=== PATIENT | female | born 1940 | race Caucasian/White ===

== ENCOUNTER → 2020-04-18 | Outpatient (CLI) | payer MEDICARE, OTHER, SELFPAY ==
[2016-02-15 09:58] VITALS: BMI 26.7
[2020-04-18 09:18] LABS: Hematocrit 40.9 % (37-47); Hemoglobin 12.9 g/dL (12.0-15.0); Mean Corp Hgb Conc 31.5 g/dL (32-36); Mean Corpuscular Hgb 28.5 pg (27.0-32.0); Mean Corpuscular Volume 90.5 fL (81-99); Mean Platelet Vol. 11.2 fl (6.2-12.0); Platelet Count 303 K/mm3 (150-450); RBC Distribution Width CV 14.9 % (11.6-14.6); RBC Distribution Width SD 49.5 fl (35.1-43.9); Red Blood Count 4.52 M/mm3 (4.2-5.4); White Blood Count 8.8 K/mm3 (4.4-11.0)
[2020-04-18 09:54] LABS: ALB/GLOB Ratio 0.8 RATIO (0.9-2.4); AST(SGOT) 21 U/L (15-37); Alanine Aminotransfer ALT/SGPT 21 U/L (13-56); Albumin, Serum 3.6 g/dL (3.2-5.0); Alkaline Phosphatase 84 U/L (45-117); Anion Gap 5 (5-15); BUN 25 mg/dL (7-18); BUN/Creat Ratio 18.2 RATIO (10-20); Calcium,Total 9.3 mg/dL (8.5-10.1); Chloride 103 mmol/L (98-107); Cholesterol 166 mg/dL (200); Creatinine, Serum 1.37 mg/dL (0.55-1.02); EST Glomerular Filtration Rate 39 mL/min (>60); Est Glom Filt Rate - Afr Amer 48 mL/min (>60); Globulin 4.3 g/dL (2.2-4.2); Glucose 82 mg/dL (74-106); High Density Lipoprotein 52 mg/dL; Potassium 3.8 mmol/L (3.5-5.1); Protein, Total 7.9 g/dL (6.4-8.2); Sodium Level 139 mmol/L (136-145); T4 Free Direct 1.16 ng/dL (0.76-1.46); Thyroid Stim Hormone (TSH) 2.68 uIU/mL (0.358-3.74); Triglycerides 82 mg/dL; Very Low Density Lipoprotein 16 mg/dL (5-40)
[2020-04-18 09:56] LABS: Vitamin D,25 Hydroxy 103.9 ng/mL
== END | disposition home or self-care (01) ==
LOC: LAB 08:28
PROVIDERS: PCP Nurse Practitioner Family; Referring Provider Nurse Practitioner Family; Visit Provider Nurse Practitioner Family
DX: I10 Essential (primary) hypertension (principal); E55.9 Vitamin D deficiency, unspecified; E78.5 Hyperlipidemia, unspecified; E03.9 Hypothyroidism, unspecified
CPT/HCPCS: 36415; 80053; 80061; 82306; 84439; 84443; 85027

== ENCOUNTER → 2020-10-14 09:26 | Outpatient (CLI) | payer MEDICARE, OTHER, SELFPAY ==
[2016-02-15 09:58] VITALS: BMI 26.7
[2020-10-14 11:07] LABS: Hematocrit 37.8 % (37-47); Hemoglobin 11.9 g/dL (12.0-15.0); Mean Corp Hgb Conc 31.5 g/dL (32-36); Mean Corpuscular Hgb 27.2 pg (27.0-32.0); Mean Corpuscular Volume 86.5 fL (81-99); Mean Platelet Vol. 12.1 fl (6.2-12.0); Platelet Count 364 K/mm3 (150-450); RBC Distribution Width CV 14.6 % (11.6-14.6); Red Blood Count 4.37 M/mm3 (4.2-5.4); White Blood Count 9.3 K/mm3 (4.4-11.0)
[2020-10-14 11:33] LABS: Vitamin D,25 Hydroxy 67.1 ng/mL
[2020-10-14 11:47] LABS: ALB/GLOB Ratio 0.9 RATIO (0.9-2.4); AST(SGOT) 17 U/L (15-37); Alanine Aminotransfer ALT/SGPT 14 U/L (13-56); Albumin, Serum 3.6 g/dL (3.2-5.0); Alkaline Phosphatase 89 U/L (45-117); Anion Gap 8 (5-15); BUN 19 mg/dL (7-18); BUN/Creat Ratio 12.9 RATIO (10-20); Calcium,Total 9.3 mg/dL (8.5-10.1); Chloride 102 mmol/L (98-107); Cholesterol 174 mg/dL (200); Creatinine, Serum 1.47 mg/dL (0.55-1.02); EST Glomerular Filtration Rate 36 mL/min (>60); Est Glom Filt Rate - Afr Amer 44 mL/min (>60); Globulin 4.1 g/dL (2.2-4.2); Glucose 93 mg/dL (74-106); High Density Lipoprotein 44 mg/dL; Potassium 3.8 mmol/L (3.5-5.1); Protein, Total 7.7 g/dL (6.4-8.2); Sodium Level 140 mmol/L (136-145); T4 Free Direct 1.24 ng/dL (0.76-1.46); Thyroid Stim Hormone (TSH) 3.44 uIU/mL (0.358-3.74); Triglycerides 134 mg/dL; Very Low Density Lipoprotein 27 mg/dL (5-40)
== END ==
PROVIDERS: PCP Nurse Practitioner Family; Referring Provider Nurse Practitioner Family; Visit Provider Nurse Practitioner Family
DX: E78.5 Hyperlipidemia, unspecified (principal); E03.9 Hypothyroidism, unspecified; E55.9 Vitamin D deficiency, unspecified; I12.9 Hypertensive chronic kidney disease with stage 1 through stage 4 chronic kidney disease, or unspecified chronic kidney disease; N18.30 Chronic kidney disease, stage 3 unspecified
CPT/HCPCS: 36415; 80053; 80061; 82306; 84439; 84443; 85027

== ENCOUNTER 2020-11-05 09:25 | Inpatient (IN) | payer MEDICARE, OTHER, SELFPAY ==
[2020-11-05] VITALS (19 sets, daily range): BP systolic 90–179; BP diastolic 42–107; PULSE 66–158; RESP 14–29; TEMP 36.2–37.2; O2SAT 93–100; BMI 24.5; BMI 25.9
--- NOTE | 2020-11-05 09:46 | EKG12_ITS ---
Test Reason : DIZZINESS Blood Pressure : / mmHG Vent. Rate : 167 BPM Atrial Rate : 174 BPM P-R Int : 000 ms QRS Dur : 090 ms QT Int : 248 ms P-R-T Axes : 000 -04 154 degrees QTc Int : 413 ms Atrial fibrillation with rapid ventricular response Moderate voltage criteria for LVH, may be normal variant Marked ST abnormality, possible lateral subendocardial injury Abnormal ECG Confirmed by FIDELIA MONTES, TRE ([id number]), newspaper editor ELENA ONEIL ([id number]) on 11/07/2020 9:25:01 AM Referred By: BERNARDA Confirmed By:MARCOS MISTRY MD
--- NOTE | 2020-11-05 09:46 | RAD_ITS ---
STUDY: X-RAY CHEST REASON FOR EXAM: Female, 79 years old. Chest pain . Dizziness. TECHNIQUE: Single AP portable view of the chest. COMPARISON: Comparison is made with prior study dated 12/18/2013. FINDINGS: EKG electrodes are seen. Hyperinflation. The lungs are clear. There is no demonstrated pleural abnormality. Normal size heart. Normal mediastinum and jeanie. Normal visualized pulmonary arteries. There is atherosclerotic calcification of the aortic arch with tortuosity. Normal visualized thoracic spine. Normal visualized ribs, clavicles, and shoulders. Moderate sized hiatal hernia. RAD/Chest 1 View (Portable) IMPRESSION: Moderate sized hiatal hernia. Electronically Signed: Dinh Bush MD at 10:18 EDT , Service support ,
--- NOTE | 2020-11-05 09:48 | ED.VISSUMM ---
- ER Visit Summary Date of Service: 11/05/20 Chief Complaint: Lightheaded History of Present Illness: The patient is a 79 F who sees Fabricio Lewis. She reports she she is lightheadedness began yesterday. She denies any chest pain or palpitations. She states that this is worsened when she stands. She has not passed out. Patient denies any vertigo. No change in her vision. No numbness or weakness. She does state that she has been nauseated and vomited twice. No blood in her emesis. She denies any abdominal pain. Her last bowel movement was yesterday. She denies dysuria or frequency. Physical Examination: Vitals: 97.2, 104/67, 167, 14, 99% on room air which is not hypoxic. General: Well-nourished and well-developed. Head: Normocephalic atraumatic. Neck: Supple, no lymphadenopathy. No JVD. Nontender. Cardiovascular: Tachycardic regular rhythm. No murmurs. Respiratory: No respiratory distress. Clear to auscultation bilaterally. Abdominal: Soft, nontender, nondistended, normal bowel sounds. No guarding, rebound, or peritoneal signs. Back: Nontender. Extremities: Nontender, no edema. Skin: Normal color, no rash. Neurologic: Alert and oriented ?3. Cranial nerves II through XII are intact. Normal strength and sensation. Psych: Normal affect. Test Results: EKG shows A. fib at 167. She has T wave inversions and ST depression in leads I, aVL, V4 to V6. This is a change from 2013. CBC shows segmented neutrophils 79 lymphocytes of 9. Chem-7 shows potassium of 3.3, glucose 113, creatinine 1.53. Troponin 0 0.099. Magnesium is 2.1. TSH is 3.42. Clinical Impression(s) from Imaging Studies Chest X-Ray 11/05/20 09:46 IMPRESSION: Moderate sized hiatal hernia. Electronically Signed: Dinh Bush MD at 10:18 EDT , Service support , Emergency Department Course and Treatment: Patient had an IV placed. She is given a 500 cc bolus of normal saline. She was given Cardizem and Zofran IV. She was given aspirin p.o. Repeat heart rate ranges between 100-140. She is given 25 mg of Cardizem IV. Repeat heart rate is ranging between 90 and 120. Patient is resting comfortably. She was started on a Cardizem drip at 5 mg/h. Treatment Plan: Patient was discussed with Dr. Estrada. She will be discussed the hospitalist and admitted for further evaluation and treatment. Disposition: Admitted in improved condition. Impression: 1. Atrial fibrillation with RVR. 2. Renal insufficiency. 3. Indeterminate troponin. 4. Critical care time 33 minutes. This note was generated with [employer] dictation software. It may contain incorrect words, spelling, and punctuation that were not noted in review of the chart prior to signing ED Disposition - Plan for ED Patient: Referrals: Jf Lewis REVIVAL CLERK, REVIVAL CLERK-C [Primary Care Provider] -
[2020-11-05] MEDS: Ondansetron 4 MG/2 ML Vial IV ×2 (09:59→19:34)
[2020-11-05] MEDS: Aspirin 81 MG TAB.CHEW 324 MG PO (10:00)
[2020-11-05] MEDS: dilTIAZem 25 MG/5 ML Vial 20 MG IV BOLUS (10:02)
[2020-11-05 10:21] LABS: Absolute Lymphocyte Count 0.95 X10^3/uL (0.83-4.51); Absolute Neutrophil Count 8.6 X10^3/uL (2.0-7.7); Basophil# 0.06 X10^3/uL; Basophil% 0.6 % (0-1); Eosinophils% 1.8 % (0-5); Hematocrit 38.8 % (37-47); Hemoglobin 12.2 g/dL (12.0-15.0); Lymphocyte # 0.95 X10^3/ul (4.0); Lymphocyte % 8.7 % (19-41); Mean Corp Hgb Conc 31.4 g/dL (32-36); Mean Corpuscular Hgb 26.6 pg (27.0-32.0); Mean Corpuscular Volume 84.7 fL (81-99); Mean Platelet Vol. 12.5 fl (6.2-12.0); Monocyte# 1.08 X10^3/uL; Monocyte% 9.9 % (0-10); NRBC Flagged by Analyzer 0 % (0-5); Neutrophil # 8.55 X10^3/uL (2.7-7.7); Neutrophil % 78.6 % (47-70); Platelet Count 395 K/mm3 (150-450); RBC Distribution Width SD 46.1 fl (35.1-43.9); Red Blood Count 4.58 M/mm3 (4.2-5.4); White Blood Count 10.9 K/mm3 (4.4-11.0)
[2020-11-05] MEDS: dilTIAZem 25 MG/5 ML Vial IV BOLUS (10:23)
[2020-11-05 10:32] LABS: Anion Gap 8 (5-15); BUN 15 mg/dL (7-18); BUN/Creat Ratio 9.8 RATIO (10-20); Calcium,Total 9.4 mg/dL (8.5-10.1); Chloride 102 mmol/L (98-107); Creatinine, Serum 1.53 mg/dL (0.55-1.02); EST Glomerular Filtration Rate 35 mL/min (>60); Est Glom Filt Rate - Afr Amer 42 mL/min (>60); Estimated Creatinine Clearance 23.85 ml/min; Glucose 113 mg/dL (74-106); Magnesium 2.1 mg/dL (1.6-2.6); Potassium 3.3 mmol/L (3.5-5.1); Sodium Level 139 mmol/L (136-145); Thyroid Stim Hormone (TSH) 3.42 uIU/mL (0.358-3.74)
--- NOTE | 2020-11-05 11:15 | NURSING ---
MAREK CHRISTENSEN AFIB WITH RVR
[2020-11-05] MEDS: 0.9% Normal Saline 1,000 ML 150 ML IV (11:24)
--- NOTE | 2020-11-05 12:12 | ECHOD_ITS ---
Reason For Study: Afib/Flutter Procedure This was a 2D Doppler, Color Flow transthoracic echocardiogram. Exam performed portable in patient room. Left Ventricle Normal LV size. Moderate concentric left ventricular hypertrophy. Left ventricular systolic function is hyperdynamic. The estimated ejection fraction is 75 %. No regional wall motion abnormalities noted. Right Ventricle Normal RV size. Normal systolic function. Atria Normal left atrium. Normal right atrium. Mitral Valve Bileaflet diffuse mitral valve thickening. Moderate (2+) eccentric mitral valve insufficiency. Tricuspid Valve Normal tricuspid valve. Moderate (2+) tricuspid valve insufficiency. Pulmonary artery systolic pressure is 58 mmHg. Moderate pulmonary hypertension. Aortic Valve Trisinus/trileaflet aortic valve. Mild focal aortic valve calcification. Pulmonic Valve Normal pulmonic valve. Great Vessels Normal aortic root. The pulmonary artery is normal size. Inferior vena cava collapse with sniff. Pericardium/Pleural No pericardial effusion. MMode/2D Measurements & Calculations LVIDd: 3.8 cm IVSd: 1.3 cm Ao root diam: 2.9 cm LVIDs: 2.3 cm LVPWd: 1.6 cm LA dimension: 4.5 cm FS: 40.5 % LAV(MOD-bp): 68.8 ml LA A4 area: 22.4 cm2 RA A4 area: 15.1 cm2 LAV(MOD-bp) Indexed: 41.7 ml/m2 LAV(MOD-sp2): 60.2 ml LAV(MOD-sp4): 73.5 ml Time Measurements MV dec time: 0.18 sec Doppler Measurements & Calculations MV E max yaniv: 127.2 cm/sec Lat Peak E' Yaniv: 5.0 cm/sec Med Peak E' Yaniv: 6.0 cm/sec MV A max yaniv: 56.9 cm/sec E/E' lat: 25.6 E/E' med: 21.2 MV E/A: 2.2 MV V2 max: 143.1 cm/sec MV P1/2t max yaniv: 144.6 cm/sec Ao V2 max: 138.0 cm/sec MV max P.2 mmHg MV P1/2t: 89.5 msec Ao max P.6 mmHg MV V2 mean: 69.4 cm/sec MV dec slope: 473.1 cm/sec2 MV mean P.4 mmHg MVA(P1/2t): 2.5 cm2 MV V2 VTI: 33.5 cm LV V1 max: 84.6 cm/sec MR max yaniv: 592.1 cm/sec PA V2 max: 69.5 cm/sec LV V1 max P.9 mmHg MR max P.2 mmHg MR mean yaniv: 466.5 cm/sec MR mean P.2 mmHg MR VTI: 184.7 cm TR max yaniv: 366.6 cm/sec TR max P.8 mmHg Interpretation Summary Normal LV size. Moderate concentric left ventricular hypertrophy. Left ventricular systolic function is hyperdynamic. The estimated ejection fraction is 75 %. Moderate (2+) eccentric mitral valve insufficiency. Pulmonary artery systolic pressure is 58 mmHg. Moderate pulmonary hypertension. Ordering Physician: True Murphy Performed By: Alon Martinez RCS
--- NOTE | 2020-11-05 12:37 | EKG12_ITS ---
Test Reason : AM EKG Blood Pressure : / mmHG Vent. Rate : 087 BPM Atrial Rate : 087 BPM P-R Int : 144 ms QRS Dur : 092 ms QT Int : 364 ms P-R-T Axes : 033 011 116 degrees QTc Int : 438 ms Normal sinus rhythm T wave abnormality, consider lateral ischemia Abnormal ECG When compared with ECG of 05-NOV-2020 12:46, MANUAL COMPARISON REQUIRED, DATA IS UNCONFIRMED Confirmed by AMITA MONTES, TATYANA ([id number]), medical editor ELENA ONEIL ([id number]) on 11/10/2020 1:53:38 PM Referred By: FERMIN Confirmed By:TATYANA LEVI MD
[2020-11-05] MEDS: Enoxaparin 60 MG/0.6 ML Syringe SC (16:39)
[2020-11-05] MEDS: Metoprolol Tartrate 50 MG Tablet PO (18:35)
[2020-11-05] MEDS: 0.9% Normal Saline 1,000 ML 75 ML IV (18:39)
--- NOTE | 2020-11-05 18:48 | CON.PCM_ITS ---
Reason for Consult Date of Consultation: 11/05/20 Reason for Consultation: Abnormal cardiac enzymes and atrial fibrillation History of Present Illness: The patient is a 79 year old F with no previous cardiac history who presented to the emergency room after being sent here by her primary care physician. She had complained of some lightheadedness as well as mild shortness of breath. She also noted that she was having some palpitations. She says that is the first time that she has ever had this episode. She denies any chest pain no paroxysmal nocturnal dyspnea or pedal edema she has been compliant with her medications. In the emergency room she was noted to be in atrial fibrillation with a rapid ventricular response rate with a heart rate of approximately [address] changes noted in the lateral leads. She was admitted to the telemetry care unit started on intravenous diltiazem and subsequently converted to sinus rhythm. Serial cardiac troponin enzymes were noted to be abnormal and cardiology was called to see her. At this particular time she has converted to sinus rhythm she is doing well with no complaints. [] Past Medical History Allergies/Adverse Reactions: Allergies ezetimibe [From Zetia] Allergy (Verified 11/05/20 09:29) Rash Home Medications: Ambulatory Orders Medication Instructions Recorded Aspirin [Aspirin, Baby] 81 mg PO DAILY@0800 11/09/13 Atorvastatin Calcium [Lipitor] 40 mg PO QHS 11/09/13 Calcium (Elemental) [Caltrate-600] 1,500 mg PO DAILY@0800 11/09/13 Levothyroxine Sodium [Levoxyl] 75 mcg PO DAILY 11/09/13 Venlafaxine XR [Effexor Xr] 37.5 mg PO DAILY 11/09/13 Carvedilol Phosphate CR [Coreg Cr 20 mg PO DAILY 03/14/14 (Beta Olvin)] Ergocalciferol [Vitamin D] 1 tablet PO QMONTH 11/05/20 Meloxicam 15 mg PO DAILY 11/05/20 Ramipril [Altace] 5 mg PO DAILY 11/05/20 Smoking Status: Never smoker Alcohol: None Drugs: None Review of Systems - Review of Systems General: Denies: Fever, Night Sweats, Fatigue HEENT: Denies: Vision Change Cardiovascular: Reports: Palpitations, Lightheadedness, Dizziness. Denies: Chest Discomfort, Shortness of Breath, Orthopnea, PND, Peripheral Edema, Near Syncope, Syncope Respiratory: Denies: Cough, Sputum Production, Hemoptysis Gastrointestinal: Denies: Hematemesis, Hematochezia, Melena Genitourinary: Denies: Dysuria, Hematuria Skin: Denies: Rash Neurological: Reports: Dizziness Psychiatric: Denies: Anxiety Endocrine: Denies: Heat Intolerance Hematologic/ Lymphatic: Denies: Anemia Subjectve: Pleasant lady in no distress at this time Objective: Vital Signs Temp Pulse Resp BP Pulse Ox 97.4 F L 76 18 157/64 H 96 11/05/20 12:30 11/05/20 18:35 11/05/20 18:00 11/05/20 18:00 11/05/20 18:00 Oxygen Flow Rate (L/min) 2 Oxygen Delivery Method Room Air Weight: 142 lb 3.17 oz Body Mass Index (BMI) 25.9 Intake and Output for Last 24 Hours 11/03/20 11/04/20 11/05/20 23:59 23:59 23:59 Intake Total 1711.41 / 1711.41 Balance 1711.41 / 1711.41 General: Awake, Alert, Oriented x 3 HEENT: PERRL, EOMI, Sclera Non Icteric Neck: Supple, Good ROM, No Lymph Node Enlargement Lungs: Clear to auscultation Cardiovascular: Regular Rhythm, Normal S1, Normal S2, No Murmurs, No Rubs, No Gallops Vascular: No Carotid Bruits, Normal Femoral Pulses, Normal Radial Pulses, Normal Dorsalis Pedal Pulse, Normal Posterior Tibial Pulses Abdomen: Bowel Sounds Present, Soft, Non Tender, No HSM, No Organomegaly Extremities: No Cyanosis, No Clubbing, No edema Musculoskeletal: No Erythema Skin: No Rashes Lymphatic: No Lymph Node Enlargement Neurological: No Focal Motor or Sensory Deficit 11/05/20 09:45: WBC 10.9, RBC 4.58, Hgb 12.2, Hct 38.8, MCV 84.7, MCH 26.6 L, MCHC 31.4 L, Plt Count 395, MPV 12.5 H, Immature Gran % (Auto) 0.400, Neut % (Auto) 78.6 H, Lymph % (Auto) 8.7 L, [place] % (Auto) 9.9, Eos % (Auto) 1.8, Baso % (Auto) 0.6, Absolute Neuts (auto) 8.6 H, Nucleated RBC % 0 11/05/20 09:45: Sodium 139, Potassium 3.3 L, Chloride 102, Carbon Dioxide 29.0, Anion Gap 8, BUN 15, Creatinine 1.53 H, Est GFR (MDRD) Af Amer 42 L, Est GFR (MDRD) Non-Af 35 L, BUN/Creatinine Ratio 9.8 L, Glucose 113 H, Calcium 9.4, Magnesium 2.1, Troponin I 0.099 H 11/05/20 12:38: Troponin I 0.540 H 11/05/20 15:44: Troponin I 1.460 H* Rhythm: EKG: Initial EKG demonstrated atrial flutter with rapid ventricular response rate of 2-1 at a rate of 167 bpm: Follow-up EKG demonstrated normal sinus rhythm with nonspecific ST changes ECHO: Overall preserved left ventricular systolic function, hyperdynamic ventricle with moderate pulmonary hypertension Stress Test: Cardiac Cath: PCI: CT Surgery: Holter monitor: EPS: PPM: CXR: Chest CT Scan: Assessment/Plan 1. Atrial tachyarrhythmia * Patient presents with new onset atrial tachyarrhythmia. The above is suggestive of an atrial flutter with a 2-1 conduction. Patient spontaneously converted to sinus rhythm after being on intravenous diltiazem. Her echocardiogram demonstrated preserved left ventricular systolic function es timated at 75% with pulmonary hypertension. The etiology of this condition is not clear to me at this particular time. * She does have a [id number] score of 3 and she will be a candidate for long-term anticoagulation if this recurs. * 2. Hypertension * Her blood pressure appears to be under good control on the current medical therapy. I will however suggest that we change her long acting carvedilol to short acting metoprolol together with the MAGALI inhibitor. * Her echocardiogram demonstrated a hyperdynamic ventricle. * 3. Non-ST elevation myocardial infarction * She has cardiac enzymes which are consistent with a non-ST elevation myocardial infarction. The above could be secondary to demand ischemia however the EKG changes in the level is rather concerning. * I will suggest that we investigate this further with a left heart catheterization. The risk benefits and alternatives have been explained to her and her [id number] and they understand and agree to proceed. The above will be scheduled for tomorrow a.m. * We will continue with risk factor modification including aspirin as well as statin. * * Thank you for allowing me to participate in the care of your patient. Please don't hesitate to call if any issues arise.
--- NOTE | 2020-11-05 19:03 | PCM.HP.STD ---
Problem List (1) Lightheadedness Status: Acute (2) Dizziness Status: Acute History of Present Illness Date of Admission: 11/05/20 Chief Complaint: Lightheadedness, dizziness, nausea The patient is a 79 year old F was seen in the emergency room at [facility] today with a chief complaint of lightheadedness along with a dizzy sensation since last night. She states that the symptoms became worse today and was accompanied by nausea and she came to the emergency room for evaluation. EKG on admission to the emergency room showed atrial fibrillation with a rapid ventricular response of approximately 167, there were ST-T wave changes in the lateral precordial leads as well as lead I and aVL. Patient's potassium was 3.3, creatinine was 1.53, troponin was 0.099. Chest x-ray showed no acute disease and a moderate sized hiatal hernia. Patient was given IV Cardizem and a Cardizem drip was started, patient's rate decreased, she was admitted to PCU for new onset atrial fibrillation with RVR, she will be seen in consultation by cardiology. Past Medical History Allergies ezetimibe [From Zetia] Allergy (Verified 11/05/20 09:29) Rash Home Medications: Ambulatory Orders Medication Instructions Recorded Aspirin [Aspirin, Baby] 81 mg PO DAILY@0800 11/09/13 Atorvastatin Calcium [Lipitor] 40 mg PO QHS 11/09/13 Calcium (Elemental) [Caltrate-600] 1,500 mg PO DAILY@0800 11/09/13 Levothyroxine Sodium [Levoxyl] 75 mcg PO DAILY 11/09/13 Venlafaxine XR [Effexor Xr] 37.5 mg PO DAILY 11/09/13 Carvedilol Phosphate CR [Coreg Cr 20 mg PO DAILY 03/14/14 (Beta Olvin)] Ergocalciferol [Vitamin D] 1 tablet PO QMONTH 11/05/20 Meloxicam 15 mg PO DAILY 11/05/20 Ramipril [Altace] 5 mg PO DAILY 11/05/20 Surgical History: - - Bilateral mastectomy, breast lumpectomy Psychiatric History: No pertinent psych hx [employer] History: No pertinent [employer] history Lives: Alone Smoking Status: Never smoker Tobacco Use: Non-smoker Alcohol: None Drugs: None - *Family History Maternal History Items: No pertinent history Paternal History Items: - - due to accident Review of Systems Constitutional: Denies: Anorexia, Chills, Fever, Night Sweats, Malaise, Weakness, Weight Change, Fatigue Eyes: Denies: Cataracts, Conjunctivae Inflammation, Double vision, Drainage HEENT: Denies: Dysphasia, Ear Pain, Eye Pain, Hearing Changes, Nasal bleeding, Nasal Congestion, Post Nasal Drip Cardiovascular: Reports: Light Headedness. Denies: Chest Pain, Claudication, Chest Pressure, Chest Tightness, Palpitations Respiratory: Denies: Cough, Hemoptysis, Pleuritic Pain, Shortness of Breath, Shortness of breath at rest, Shortness of breath upon exertion, Sputum production Gastrointestinal: Reports: Nausea. Denies: Abdominal Pain, Constipation, Diarrhea, Hematemesis, Hematochezia, Melena, Vomiting Genitourinary: Denies: Dysuria, Frequency, Hematuria, Hesitancy, Urgency Musculoskeletal: Denies: Back Pain, Foot Pain, Joint Pain, Joint stiffness, Joint swelling, Joint Tenderness, Leg Pain Skin: Denies: Dryness, Pruritis, Rash Neurological: Denies: Blurred vision, Double vision, Slurred speech, Difficulty swallowing, Focal weakness, Numbness, Tingling Psychiatric: Denies: Anxiety, Depression, Homicidal Ideations, Suicidal Ideations Endocrine: Denies: Change in Body Habitus, Heat/ Cold Intolerance, Polydipsia, Polyuria Hematologic/ Lymphatic: Denies: Adenopathy, Anemia, Easy Bruising, Easy Bleeding, Petechiae, Purpura VTE Information - Inpt Only VTE Present on Admission: No VTE Mechan Device Prophylaxis: None VTE Pharm Prophylaxis ordered?: No Reason prophylaxis not ordered:: Medical Contraindication - Patient is on full anticoagulation - Physical Exam Vitals/I&O's: Vital Signs Temp Pulse Resp BP Pulse Ox 97.4 F L 76 18 157/64 H 96 11/05/20 12:30 11/05/20 18:35 11/05/20 18:00 11/05/20 18:00 11/05/20 18:00 Oxygen Flow Rate (L/min) 2 Oxygen Delivery Method Room Air Weight: 64.5 kg Body Mass Index (BMI) 25.9 Intake and Output for Last 24 Hours 11/03/20 11/04/20 11/05/20 23:59 23:59 23:59 Intake Total 1711.41 / 1711.41 Balance 171.41 / 171.41 General: Alert, Oriented x3, Cooperative HEENT: Atraumatic, PERRLA, EOMI, Normocephalic Oral: Moist Mucosa Neck: Supple, No JVD, Negative Carotid Bruits, Trachea Midline, Thyroid Normal Size and Texture Lungs: Clear to auscultation, Normal air movement, No rhonchi, No wheeze, No rales Cardiovascular: Regular Rhythm, Normal S1, Normal S2, No murmurs, PMI Normal, Irregular Rate, No rub noted, No Gallop Abdomen: Bowel Sounds Present, Soft, Non Tender, Non-Distended, No hernias noted Extremities: No clubbing, No cyanosis, No edema, Capillary Refill Less than 3 Seconds Skin: No rashes, No breakdown Musculoskeletal: No Tenderness to Palpation of Joints or Extremities Neurological: Cranial nerves II-XII grossly intact, Neuro grossly intact, Sensory exam intact to light touch and pain, Coordination normal Psych/Mental Status: Normal Affect, Appropriate, Alert and oriented to time, place, person, mood and affect Laboratory Results 11/05/20 09:45: WBC 10.9, RBC 4.58, Hgb 12.2, Hct 38.8, MCV 84.7, MCH 26.6 L, MCHC 31.4 L, RDW Std Deviation 46.1 H, RDW Coeff of Courtney 15.0 H, Plt Count 395, MPV 12.5 H, Immature Gran % (Auto) 0.400, Neut % (Auto) 78.6 H, Lymph % (Auto) 8.7 L, [place] % (Auto) 9.9, Eos % (Auto) 1.8, Baso % (Auto) 0.6, Absolute Neuts (auto) 8.6 H, Absolute Lymphs (auto) 0.95, Nucleated RBC % 0 11/05/20 09:45: Sodium 139, Potassium 3.3 L, Chloride 102, Carbon Dioxide 29.0, Anion Gap 8, BUN 15, Creatinine 1.53 H, Estim Creat Clear Calc 23.85, Est GFR (MDRD) Af Amer 42 L, Est GFR (MDRD) Non-Af 35 L, BUN/Creatinine Ratio 9.8 L, Glucose 113 H, Calcium 9.4, Magnesium 2.1, Troponin I 0.099 H, TSH 3.42 11/05/20 12:38: Troponin I 0.540 H 11/05/20 15:44: Troponin I 1.460 H* Current Medications Acetaminophen (Acetaminophen 325 Mg Tablet) 650 mg PO Q6H PRN PRN PRN Reason: Pain Score 1-10/Temp > 100.7 F Aspirin (Aspirin 81 Mg Tab.Chew) 81 mg PO DAILY@0800 [facility] Enoxaparin Sodium (Enoxaparin 60 Mg/0.6 Ml Syringe) 60 mg SC Q12 [facility] Last Admin: 11/05/20 16:39 Dose: 60 mg Documented by: Sodium Chloride () 1,000 mls @ 75 mls/hr IV .[id number] [facility] Last Admin: 11/05/20 18:39 Dose: 75 mls/hr Documented by: Sodium Chloride () 250 mls @ 15 mls/hr IV .[id number] PRN PRN Reason: Saline Flush Sodium Chloride () 250 mls @ 15 mls/hr IV .[id number] PRN PRN Reason: Additional IVPB Infusion Sodium Chloride () 1,000 mls @ 0 mls/hr IV .Q0M [facility] Potassium Chloride () 10 meq in 100 mls @ 100 mls/hr IV BOLUS Q1H [facility] Stop: 11/05/20 19:59 Metoprolol Tartrate (Metoprolol Tartrate 50 Mg Tablet) 50 mg PO BID [facility] Last Admin: 11/05/20 18:35 Dose: 50 mg Documented by: Ondansetron HCl (Ondansetron 4 Mg/2 Ml Vial) 4 mg IV Q8H PRN PRN PRN Reason: NAUSEA/VOMITING Potassium Chloride (Potassium Chloride Oral Tablet 20 Meq) 40 meq PO X1 ONE Stop: 11/05/20 19:16 Sodium Chloride (0.9% Saline Lock 10 Ml Syringe) 10 - 40 ml IV UD PRN PRN Reason: SALINE FLUSH Temazepam (Temazepam 15 Mg Capsule) 15 mg PO QHS PRN PRN PRN Reason: INSOMNIA Assessment/Plan All Active Problems Lightheadedness (Acute) Dizziness (Acute) #1 new onset atrial fibrillation with RVR-patient was admitted to PCU on a Cardizem drip, shortly after admission to PCU she converted to normal sinus rhythm in the 70s and 80s, repeat cardiac enzymes elevated, she was seen by cardiology and she will undergo a cardiac catheterization tomorrow. Cardiac medications were adjusted by cardiology. #2 hyperlipidemia #3 hypothyroidism #4 chronic kidney disease stage IIIb #5 chronic depression #6 hypokalemia-potassium supplementation was ordered by cardiology #7 [id number] had elevation of her troponin, again she will undergo cardiac catheterization tomorrow #8 moderate pulmonary hypertension-patient had an echocardiogram performed after admission which showed evidence of pulmonary hypertension, her ejection fraction was normal. Inpatient E&M: 11685 Init Hosp L3
[2020-11-05] MEDS: 0.9% Saline Lock 10 ML Syringe IV ×2 (19:34→21:04)
[2020-11-05] MEDS: Potassium Chloride Oral Tablet 20 MEQ 40 MEQ PO (20:24)
[2020-11-05] MEDS: Potassium Chloride 10mEq/100mL 10 MEQ/100 ML IV.SOLN. 100 MEQ IV BOLUS (20:24)
[2020-11-05] MEDS: Atorvastatin Calcium 40 MG Tablet PO (21:04)
[2020-11-06] VITALS (24 sets, daily range): BP systolic 128–198; BP diastolic 52–82; PULSE 70–122; RESP 12–18; TEMP 36.6–37.1; O2SAT 91–97
[2020-11-06] MEDS: 0.9% Saline Lock 10 ML Syringe IV ×2 (00:38→11:23)
[2020-11-06] MEDS: Metoclopramide 10 MG/2 ML Vial 2.5 MG IV (00:38)
[2020-11-06 02:56] LABS: Anion Gap 7 (5-15); BUN 17 mg/dL (7-18); BUN/Creat Ratio 11.8 RATIO (10-20); Calcium,Total 8.8 mg/dL (8.5-10.1); Chloride 107 mmol/L (98-107); Creatinine, Serum 1.44 mg/dL (0.55-1.02); EST Glomerular Filtration Rate 37 mL/min (>60); Est Glom Filt Rate - Afr Amer 45 mL/min (>60); Estimated Creatinine Clearance 24.23 ml/min; Glucose 98 mg/dL (74-106); Potassium 3.4 mmol/L (3.5-5.1); Sodium Level 140 mmol/L (136-145)
[2020-11-06] MEDS: Potassium Chloride Oral Tablet 20 MEQ 40 MEQ PO (04:24)
--- NOTE | 2020-11-06 05:00 | EKG12_ITS ---
Test Reason : AFIB/RVR ADMIN Blood Pressure : / mmHG Vent. Rate : 067 BPM Atrial Rate : 067 BPM P-R Int : 126 ms QRS Dur : 100 ms QT Int : 410 ms P-R-T Axes : -02 -10 145 degrees QTc Int : 433 ms Sinus rhythm with Blocked Premature atrial complexes Left ventricular hypertrophy with repolarization abnormality Abnormal ECG When compared with ECG of 09-NOV-2013 12:32, Premature atrial complexes are now Present Confirmed by AMITA MONTES, TATYANA ([id number]), mapping editor ELENA ONEIL ([id number]) on 11/10/2020 1:55:21 PM Referred By: FERMIN Confirmed By:TATYANA LEVI MD
[2020-11-06 05:47] LABS: Anion Gap 8 (5-15); BUN 14 mg/dL (7-18); BUN/Creat Ratio 9.8 RATIO (10-20); Chloride 109 mmol/L (98-107); Creatinine, Serum 1.43 mg/dL (0.55-1.02); EST Glomerular Filtration Rate 37 mL/min (>60); Est Glom Filt Rate - Afr Amer 45 mL/min (>60); Glucose 104 mg/dL (74-106); Potassium 3.5 mmol/L (3.5-5.1); Sodium Level 140 mmol/L (136-145)
[2020-11-06] MEDS: Aspirin 81 MG TAB.CHEW PO (06:09)
[2020-11-06] MEDS: Levothyroxine 75 MCG Tablet PO (06:09)
[2020-11-06] MEDS: Metoprolol Tartrate 50 MG Tablet PO (06:09)
[2020-11-06] MEDS: Ramipril 5 MG Capsule PO (06:09)
--- NOTE | 2020-11-06 08:07 | NURSING ---
report given to gaurav in carpenter/labor
--- NOTE | 2020-11-06 09:30 | PN.CARD_ITS ---
Subjectve: Patient seen and evaluated. Appears to be doing well. Underwent cardiac catheterization today. Objective: Vital Signs Temp Pulse Resp BP Pulse Ox 98.7 F 91 18 188/70 H 94 11/06/20 06:04 11/06/20 06:56 11/06/20 06:04 11/06/20 06:04 11/06/20 06:04 Oxygen Flow Rate (L/min) 2 Oxygen Delivery Method Room Air Weight: 142 lb 3.17 oz Body Mass Index (BMI) 25.9 Intake and Output for Last 24 Hours 11/04/20 11/05/20 11/06/20 23:59 23:59 23:59 Intake Total 1882.66 / 2242.66 480 / 480 Balance 1882.66 / 2242.66 480 / 480 General: Awake, Alert, Oriented x 3 HEENT: PERRL, EOMI, Sclera Non Icteric Neck: Supple, Good ROM, No Lymph Node Enlargement Lungs: Clear to auscultation Cardiovascular: Regular Rhythm, Normal S1, Normal S2, No Murmurs, No Rubs, No Gallops Vascular: No Carotid Bruits, Normal Femoral Pulses, Normal Radial Pulses, Normal Dorsalis Pedal Pulse, Normal Posterior Tibial Pulses Abdomen: Bowel Sounds Present, Soft, Non Tender, No HSM, No Organomegaly Extremities: No Cyanosis, No Clubbing, No edema Musculoskeletal: No Erythema Skin: No Rashes Lymphatic: No Lymph Node Enlargement Neurological: No Focal Motor or Sensory Deficit Psych/Mental Status: Appropriate 11/05/20 09:45: WBC 10.9, RBC 4.58, Hgb 12.2, Hct 38.8, MCV 84.7, MCH 26.6 L, MCHC 31.4 L, Plt Count 395, MPV 12.5 H, Immature Gran % (Auto) 0.400, Neut % (Auto) 78.6 H, Lymph % (Auto) 8.7 L, [place] % (Auto) 9.9, Eos % (Auto) 1.8, Baso % (Auto) 0.6, Absolute Neuts (auto) 8.6 H, Nucleated RBC % 0 11/05/20 09:45: Sodium 139, Potassium 3.3 L, Chloride 102, Carbon Dioxide 29.0, Anion Gap 8, BUN 15, Creatinine 1.53 H, Est GFR (MDRD) Af Amer 42 L, Est GFR (MDRD) Non-Af 35 L, BUN/Creatinine Ratio 9.8 L, Glucose 113 H, Calcium 9.4, Magnesium 2.1, Troponin I 0.099 H 11/05/20 12:38: Troponin I 0.540 H 11/05/20 15:44: Troponin I 1.460 H* 11/06/20 02:30: Sodium 140, Potassium 3.4 L, Chloride 107, Carbon Dioxide 26.0, Anion Gap 7, BUN 17, Creatinine 1.44 H, Est GFR (MDRD) Af Amer 45 L, Est GFR (MDRD) Non-Af 37 L, BUN/Creatinine Ratio 11.8, Glucose 98, Calcium 8.8 11/06/20 05:12: Sodium 140, Potassium 3.5, Chloride 109 H, Carbon Dioxide 23.0, Anion Gap 8, BUN 14, Creatinine 1.43 H, Est GFR (MDRD) Af Amer 45 L, Est GFR (MDRD) Non-Af 37 L, BUN/Creatinine Ratio 9.8 L, Glucose 104, Calcium 9.0 Rhythm: EKG: ECHO: Stress Test: Cardiac Cath: PCI: CT Surgery: Holter monitor: EPS: PPM: CXR: Chest CT Scan: Medical Necessity - Tobacco Use Smoking Status: Never smoker Tobacco Use: Non-smoker Assessment/Plan 1. Atrial tachyarrhythmia * Patient presents with new onset atrial tachyarrhythmia. The above is suggestive of an atrial flutter with a 2-1 conduction. Patient spontaneously converted to sinus rhythm after being on intravenous diltiazem. Her echocardiogram demonstrated preserved left ventricular systolic function estimated at 75% with pulmonary hypertension. The etiology of this condition is not clear to me at this particular time. * She does have a [id number] score of 3 and she will be a candidate for long- term anticoagulation if this recurs. * She can start anticoagulation from tomorrow at home. 2. Hypertension * Her blood pressure appears to be under good control on the current medical therapy. I will however suggest that we change her long acting carvedilol to short acting metoprolol together with the MAGALI inhibitor. * Her echocardiogram demonstrated a hyperdynamic ventricle. * Will also add amlodipine 10 mg a day 3. Non-ST elevation myocardial infarction * She has cardiac enzymes which are consistent with a non-ST elevation myocardial infarction. * Cardiac catheterization today demonstrated nonobstructive coronary arteries. Severe hypertension was noted. The above was likely secondary to demand ischemia. * * Thank you for allowing me to participate in the care of your patient. Please don't hesitate to call if any issues arise.
--- NOTE | 2020-11-06 09:38 | CL.D_ITS ---
Patient Name: AKSHAT DOWD Study Date: 11/06/2020 Performing: Ramon Estrada MD Ht: 61.81 inches 157 cm : 1940 Wt: 143.3 lbs 65 kg Age: 79 Gender: female BSA: 1.66 PROCEDURE(S) PERFORMED [id number]-YJA/COR CLINICAL PROFILE AND INDICATIONS Indications: Suspected CAD Heart Failure: None Stress/Imaging Stress/Image Study Performed: No CONCLUSIONS Non obstructive coronary arteries Severe Hypertension RECOMMENDATIONS Medical therapy Anticoagulation as outpatient DESCRIPTION OF PROCEDURE The patient arrived to the procedure lab. The risks and benefits of the procedure as well as a full d escription of our services here and current unavailability of surgical backup were fully explained to the patient and/or their significant other prior to the catheterization. The Timeout was completed, verifying the correct patient and procedure. The patient's procedural site was prepped and draped in the usual fashion. Local anesthetic was given subcutaneously to right radial region with Lidocaine 2% . Local anesthetic was given subcutaneously to right groin region with Lidocaine 2%. Using a modified Seldinger technique, arterial access was obtained via the right radial artery, a 6Fr sheath was inse rted., arterial access was obtained via the right femoral artery, a 5Fr sheath was inserted. Left Co ronary Artery selective angiography was performed in multiple views using a 5 Fr. JL4 catheter. Right Coronary Artery selective angiography was then performed in multiple views using a 5 Fr. 3DRC (Torrey) catheter. LV to AO pullback pressures were then recorded.The arterial sheath was pull ed and a TR Band was applied for hemostasis CORONARY ANGIOGRAPHY DOMINANCE: Left Dominant LEFT HEART ASSESSMENT Left Ventricular Ejection Fraction: by Echo 75 % Normal LV wall motion Normal Left Ventricular systolic function LEFT MAIN: Angiographically normal LEFT ANTERIOR DESCENDING ARTERY: No significant disease noted CIRCUMFLEX ARTERY: No significant disease noted RIGHT CORONARY ARTERY: No significant disease noted COMPLICATIONS No Complications PROCEDURE MEDICATIONS Versed 1 mg IV Fentanyl 50 mcg IV Versed 1 mg IV Fentanyl 25 mcg IV Oxygen: 2 L/min via nasal cannula Heparin diluted in 23cc Heparinized saline. Patient given 10cc IA of this solution. 11/06/2020 09:02: 18 Labetalol 10 mg 11/06/2020 09:24:52 Verapamil 2.5mg, Ntg 100mcgs, 2000 units of Heparin diluted in 23cc Heparinized saline. Patient give n 10cc IA of this solution. 11/06/2020 09:02:18 SUMMARY OF HEMODYNAMIC DATA Time AIR REST ECG 08:18:53 AO 123/63 (86) SA 09:04:07 AO 208/96 (142) 09:17:03 LV 210/18, 28 09:22:42 LV 208/17, 25 09:22:48 LVp 207/30, 57 09:23:33 AOp 198/88 (133) 09:23:38 Signed By Ramon Estrada MD On 11/06/2020 09:37:10 Ramon Estrada MD
[2020-11-06] MEDS: hydrALAZINE 20 MG/ML Vial 10 MG IV (11:21)
[2020-11-06] MEDS: Venlafaxine XR 37.5 MG Capsule PO (11:22)
[2020-11-06] MEDS: amLODIPine 10 MG Tablet PO (11:23)
[2020-11-06] MEDS: Ramipril 10 MG Capsule PO (11:32)
--- NOTE | 2020-11-06 12:09 | CASEMGMT ---
CRISELDA ROLDAN assessment: Face to Face with patient for initial transition planning/care coordination assessment. CRISELDA ROLDAN introduced self and role at [facility], pt voices understanding and consents to assessment. Pt is sitting up in bed in no distress. Pt is A/Ox4 and answers all questions appropriately. Care providers, pharmacy, and demographics verified. Presentation: Pt c/o dizziness since last night. Pt was started on meloxicam for toe issue yesterday, thinks her medication is causing dizziness, denies BELTRE Admitting dx: Afib RVR PCP: Debbie Specialists: Pt states no current specialists. [facility]erred [facility]acy[facility] Insurance: MCR A/B, MMO Prescription Benefit: MCR D Living Will/HPOA: Pt states has LW/HPOA and is aware that they are not on file at [facility]. Pt states her daughter, Florence Young, is HPOA. LNOK: Florence Young, daughter Living Arrangements: Pt states lives alone in mobile home with a ramp entrance and states no concerns at home. Pt states is independent with ADL's. Transportation: Pt states drives self and states no transportation concerns. DME/HHC: Pt states no current DME or need for DME. Pt states no hx of HHC or SNF in the past. Pt states no concerns with going home at time of discharge. Pt is retired. Pt states does not smoke cigarettes or drink ETOH. Pt states no further concerns/needs. CM to follow for anti-coagulation and any further discharge planning/needs. Advised pt to ask for CM if any further questions/concerns/need arise, voices understanding. Pt Goal: Home Plan[place] CRISELDA ROLDAN
[2020-11-06] MEDS: 0.9% Normal Saline 1,000 ML 75 ML IV (15:28)
--- NOTE | 2020-11-06 15:38 | CASEMGMT ---
Pt to be sent home on Eliquis. TC to [facility] pharmacy. Copay will be $465.80, with $400 to meet deductible. Pt provided with EliquCIHI 30 day free trial card, explanation provided. Pt aware if she cannot afford medication to discuss at her fu appt with MD. She verbalizes understanding. No questions or futher concerns.
--- NOTE | 2020-11-06 16:10 | PCM.DC ---
- Discharge Diagnoses Current Active Problems: Current Active and Chronic Problems Lightheadedness (Acute) Dizziness (Acute) You will use the following diet at home:: No restrictions Your food should be the consistency of: Regular Your liquids should be the consistency of: Regular/Thin Discharge Activity: Return to Normal Activity Weight Bearing Status: Full weight bearing Additional Instructions: Do not start Eliquis until 11/08/20 Take only Tylenol for pain while on Eliquis, do not take aspirin, Ibuprofen, or Aleve Allergies/Adverse Reactions: Allergies ezetimibe [From Zetia] Allergy (Verified 11/05/20 09:29) Rash Medications to take at Discharge Atorvastatin Calcium [Lipitor] 40 mg PO QHS 11/09/13 Calcium (Elemental) [Caltrate-600] 1,500 mg PO DAILY@0800 11/09/13 Levothyroxine Sodium [Levoxyl] 75 mcg PO DAILY 11/09/13 Venlafaxine XR [Effexor Xr] 37.5 mg PO DAILY 11/09/13 Ergocalciferol [Vitamin D] 1 tablet PO QMONTH 11/05/20 Amlodipine [Norvasc] 10 mg PO DAILY #30 tablet 11/06/20 Apixaban [Eliquis] 5 mg PO BID #60 tablet 11/06/20 Metoprolol Tartrate [Lopressor (beta ninfa)] 50 mg PO BID #60 tablet 11/06/20 Ramipril [Altace] 10 mg PO DAILY #30 capsule 11/06/20 The following prescriptions were given: Ramipril [Altace] 10 mg PO DAILY #30 capsule Transmission Status: Received by [employer] #30 Apixaban [Eliquis] 5 mg PO BID #60 tablet Transmission Status: Received by [employer] [facility]30 Metoprolol Tartrate [Lopressor (beta ninfa)] 50 mg PO BID #60 tablet Transmission Status: Received by [employer] [facility]30 Amlodipine [Norvasc] 10 mg PO DAILY #30 tablet Transmission Status: Received by [employer] [facility]30 Primary Care Physician: Jf Lewis FAMILY CONSUMER SCIENTIST, FAMILY CONSUMER SCIENTIST-C [Primary Care Provider] - Please follow up with your Primary Care Physician in: in 1-2 weeks Test Results: Test results from this visit will be discussed in further detail at your follow-up appointment, if applicable. Please Follow Up With: Ramon Estrada MD When: in 4-6 weeks or as directed by office
--- NOTE | 2020-11-07 16:00 | DS.PCM_ITS ---
Discharge Date and Diagnosis - Problem List Patient Problems: Active and Suspected Problems Lightheadedness (Acute) Dizziness (Acute) Date of Admission: 11/05/20 Date of Discharge: 11/06/20 - Primary Discharge Diagnosis Acute Problems: Active Problems #1 new onset atrial fibrillation with RVR-converted to normal sinus rhythm #2 hyperlipidemia #3 hypothyroidism #4 chronic kidney disease stage IIIb #5 chronic depression #6 hypokalemia #7 non-STEMI #8 moderate pulmonary hypertension #9 nonobstructive coronary artery disease #10 severe hypertension Hospital Course and Treatment Operations: None Procedures: 2-D Echocardiogram, Cardiac catheterization Summary of Care Provided: The patient is a 79 year old F seen in the emergency room at [facility] with a chief complaint of lightheadedness, nausea, and a dizzy sensation. EKG on admission to the emergency room showed atrial fibrillation with rapid ventricular response with a rate of approximately 100-67. ST-T wave changes are noted in the lateral precordial leads as well as leads I and aVL. Potassium was slightly low at 3.3, troponin was 0.099, creatinine was 1.53. Patient was given IV Cardizem and a Cardizem drip was started in the ER which reduce the patient's heart rate. Patient was admitted to PCU and a Cardizem drip was continued, patient converted normal sinus rhythm shortly after her admission to the floor and was seen in consultation by cardiology. Echocardiogram was obtained which showed a normal ejection fraction and moderate pulmonary hypertension, serial cardiac enzymes elevated indicating a non-STEMI, the patient underwent a cardiac catheterization which showed nonobstructive coronary artery disease. On 11/06/2020, patient was seen and examined: On examination she appeared in good health and spirits, she does not appear to be in any distress. Vital signs as documented. Skin warm and dry and without overt rashes. Neck without JVD, thyroid appears normal, trachea is midline, neck is supple. Lungs clear, normal air movement was noted. Heart exam notable for regular rhythm, normal sounds and absence of murmurs, rubs or gallops. Abdomen unremarkable and without evidence of organomegaly, masses, or abdominal aortic enlargement, bowel sounds are present in all 4 quadrants, no abdominal tenderness was noted. Extremities nonedematous, no cyanosis was noted, no clubbing was noted. Neuro: Cranial nerves II through XII are grossly intact, no focal motor deficits were noted, sensation to light touch and pinprick is intact, motor exam 5/5 throughout. Psych: Patient is alert and oriented x3, she does not appear anxious or depressed, she does not appear agitated. Patient appears stable for discharge on 11/06/2020, she was instructed to wait 48 hours to start Eliquis at home due to the fact that she had a groin approach to her cardiac catheterization. Patient's blood pressure medications were adjusted also during her hospitalization. Patient Problems: Active and Suspected Problems Lightheadedness (Acute) Dizziness (Acute) - Physical Exam Vitals/I&O's: Vital Signs Temp Pulse Resp BP Pulse Ox 98.2 F 70 12 145/73 H 97 11/06/20 15:55 11/06/20 15:55 11/06/20 15:55 11/06/20 15:55 11/06/20 15:55 Oxygen Flow Rate (L/min) 2 Oxygen Delivery Method Room Air Weight: 64.5 kg Body Mass Index (BMI) 25.9 Intake and Output for Last 24 Hours 11/05/20 11/06/20 11/07/20 23:59 23:59 23:59 Intake Total 1882.66 / 2242.66 1720.00 / 1720.00 Balance 1882.66 / 2242.66 1720.00 / 1720.00 Discharge Activity: Return to Normal Activity Weight Bearing Status: Full weight bearing Home Medications: Medications to take at Discharge Atorvastatin Calcium [Lipitor] 40 mg PO QHS 11/09/13 Calcium (Elemental) [Caltrate-600] 1,500 mg PO DAILY@0800 11/09/13 Levothyroxine Sodium [Levoxyl] 75 mcg PO DAILY 11/09/13 Venlafaxine XR [Effexor Xr] 37.5 mg PO DAILY 11/09/13 Ergocalciferol [Vitamin D] 1 tablet PO QMONTH 11/05/20 Amlodipine [Norvasc] 10 mg PO DAILY #30 tablet 11/06/20 Apixaban [Eliquis] 5 mg PO BID #60 tablet 11/06/20 Metoprolol Tartrate [Lopressor (beta ninfa)] 50 mg PO BID #60 tablet 11/06/20 Ramipril [Altace] 10 mg PO DAILY #30 capsule 11/06/20 Following Prescriptions Were Given to Patient: Ramipril [Altace] 10 mg PO DAILY #30 capsule Transmission Status: Received by [employer] #30 Apixaban [Eliquis] 5 mg PO BID #60 tablet Transmission Status: Received by [employer] [facility]30 Metoprolol Tartrate [Lopressor (beta ninfa)] 50 mg PO BID #60 tablet Transmission Status: Received by [employer] [facility]30 Amlodipine [Norvasc] 10 mg PO DAILY #30 tablet Transmission Status: Received by [employer] #30 Primary Care Physician: Jf Lewis BROOMCORN THRESHER, BROOMCORN THRESHER-C [Primary Care Provider] - Please follow up with your Primary Care Physician in: in 1-2 weeks Please Follow Up With: Ramon Estrada MD When: in 4-6 weeks or as directed by office Disposition: Home Minutes spent on discharge:: 32 Patient Condition:: Stable Medical Necessity - Tobacco Use Smoking Status: Never smoker Tobacco Use: Non-smoker Meaningful Use Info Meaningful Use Diagnoses (Choose all that apply): None applicable Inpatient E&M: 47611 Disch Hosp
== END 2020-11-06 16:50 | disposition home or self-care (01) | DRG 282 ==
LOC: ED 10:13 → PCU 11:18
PROVIDERS: Family Medicine; Internal Medicine Cardiovascular Disease; Admitting Provider Internal Medicine; Emergency Provider Emergency Medicine; PCP Nurse Practitioner Family; Visit Provider Internal Medicine
DX: I21.4 Non-ST elevation (NSTEMI) myocardial infarction (principal); I48.91 Unspecified atrial fibrillation; I25.10 Atherosclerotic heart disease of native coronary artery without angina pectoris; E78.5 Hyperlipidemia, unspecified; E03.9 Hypothyroidism, unspecified; I12.9 Hypertensive chronic kidney disease with stage 1 through stage 4 chronic kidney disease, or unspecified chronic kidney disease; N18.32 Chronic kidney disease, stage 3b; F32.9 Major depressive disorder, single episode, unspecified; E87.6 Hypokalemia; I27.20 Pulmonary hypertension, unspecified
CPT/HCPCS: 36415; 71045; 80048; 83735; 84443; 84484; 85025; 93005; 93306; 93454; 99152; 99153; 99285; J7030; Q9967; A4216; C1769; C1894; J2405

== ENCOUNTER 2020-11-30 13:10 | Inpatient (IN) | payer MEDICARE, OTHER, SELFPAY ==
[2020-11-05 12:38] VITALS: BMI 25.9
[2020-11-30 13:44] VITALS: BP 120/42; PULSE 90; RESP 16; TEMP 36.9; O2SAT 94; BMI 25.7
[2020-11-30 14:11] VITALS: BMI 25.7
[2020-11-30 14:18] VITALS: PULSE 88; RESP 16; O2SAT 92
[2020-11-30 17:44] VITALS: BP 120/42; PULSE 90
[2020-11-30] MEDS: Metoprolol Tartrate 50 MG Tablet PO (17:44)
[2020-11-30] MEDS: APIXABAN 5 MG TABLET PO (17:44)
[2020-11-30] MEDS: oxyCODONE 5 MG Tablet PO (19:06)
[2020-11-30] MEDS: Amox/Clavulanate 500 MG Tablet PO (21:53)
--- NOTE | 2020-11-30 22:45 | HP.PCM_ITS ---
Problem List (1) Debility Status: Acute (2) Abdominal pain Status: Acute (3) Hypokalemia Status: Acute (4) Jaundice Status: Acute (5) Pancreatic cancer Status: Acute (6) Chronic kidney disease Status: Chronic (7) Hypothyroidism Status: Chronic (8) Depression Status: Chronic (9) Hypertension Status: Chronic (10) Osteoarthritis Status: Chronic (11) New onset atrial fibrillation Status: Acute (12) Coronary artery disease Status: Chronic (13) Breast cancer Status: Chronic (14) Pulmonary hypertension Status: Chronic (15) Hyperlipidemia Status: Chronic History of Present Illness Date of Admission: 11/30/20 Chief Complaint: Here for rehabilitation, strengthening, prior to discharge home with hospice. 11/23/2020 The patient is a 80 year old Female with below past medical history admitted to [facility] from [facility]. Myalgia, Jaundice, nausea, vomiting. K 2.7, elevated liver function tests. CT abdomen showed dilated intra and extrahepatic biliary system. Order MRCP, consider ERCP, consider cholecystectomy. Replete electrolytes. 11/23/2020 MRCP showed pancreatic mass, distended gallbladder with layering debris, moderate to large hiatal hernnia. 11/24/2020 CT abdomen showed pancreatic head mass, hiatal hernia. 11/26/2020 Carotid doppler ultrasound showed < 50% stenosis bilateral carotid arteries. [id number]. Patient underwent EUS/ERCP pancreatic head mass with distal CBD stricture, sphincterotomy and stent x 3. Pathology showed adenocarcinoma of pancreas. Zosyn IV to prevent cholangitis. Patient would like to get stronger prior to discuss treatment options for pancreatic cancer. She would like to get stronger prior to going home. 11/30/2020 Admit to TCU with debility, here for rehabilitation, strengthening, prior to discharge home with hospice. Past Medical History Past Medical History (Chronic Problems): Chronic Problems (Last Updated 11/08/20 @ 11:27 by Tierra Valentine) Chronic kidney disease (Chronic) Hypothyroidism (Chronic) Depression (Chronic) Hypertension (Chronic) Osteoarthritis (Chronic) Coronary artery disease (Chronic) Breast cancer (Chronic) Pulmonary hypertension (Chronic) Essential (primary) hypertension (Chronic) Non-rheumatic tricuspid valve insufficiency (Chronic) Nonrheumatic mitral (valve) insufficiency (Chronic) Secondary pulmonary arterial hypertension (Chronic) Hyperlipidemia (Chronic) Medical History: Medical History (Last Updated 11/08/20 @ 11:27 by Tierra Valentine) Atrial fibrillation with rapid ventricular response (Acute) Onset Date: 11/05/20 I48.91 Essential (primary) hypertension (Chronic) I10 Non-rheumatic tricuspid valve insufficiency (Chronic) I36.1 Nonrheumatic mitral (valve) insufficiency (Chronic) I34.0 Secondary pulmonary arterial hypertension (Chronic) I27.21 Hyperlipidemia (Chronic) E78.5 Hypothyroidism E03.9 Allergies ezetimibe [From Zetia] Allergy (Verified 11/05/20 09:29) Rash Home Medications: Ambulatory Orders Medication Instructions Recorded Calcium (Elemental) [Caltrate-600] 1,500 mg PO DAILY@0800 11/09/13 Levothyroxine Sodium [Levoxyl] 75 mcg PO DAILY 11/09/13 Venlafaxine XR [Effexor Xr] 37.5 mg PO DAILY 11/09/13 Ergocalciferol [Vitamin D] 1 tablet PO QMONTH 11/05/20 Amlodipine [Norvasc] 10 mg PO DAILY 11/30/20 Amoxicillin/Potassium Clav 1 each PO Q12H PRN PRN 11/30/20 [Augmentin 500-125 Tablet] Apixaban [Eliquis] 5 mg PO BID 11/30/20 Lidocaine 1 each TOPICAL DAILY 11/30/20 Metoprolol Tartrate [Lopressor 50 mg PO BID 11/30/20 (beta ninfa)] Ondansetron HCl [Zofran] 4 mg PO TID PRN 11/30/20 Oxycodone [Oxyir] 5 mg PO Q6H PRN PRN 11/30/20 Peg 400/Hypromellose/Glycerin 1 drp EACH EYE Q2H PRN 11/30/20 [Artificial Tears] Polyethylene Glycol 3350 [Miralax] 17 gm PO DAILY PRN 11/30/20 Ramipril [Altace] 5 mg PO DAILY 11/30/20 Surgical History: Surgical History (Last Updated 11/08/20 @ 11:23 by Tierra Valentine) History of left heart catheterization Onset Date: 11/06/20 Z98.890 Surgical History: mastectomy - Bilateral., - - Breast lumpectomy Psychiatric History: Depression LAW LIBRARIAN History: No pertinent LAW LIBRARIAN history Lives: Alone Smoking Status: Never smoker Tobacco Use: Non-smoker Alcohol: None Drugs: None - *Family History Maternal History Items: No pertinent history Paternal History Items: - - due to accident Review of Systems Constitutional: Denies: Chills, Fever, Weight Change HEENT: Denies: Head Aches, Sinus Congestion, Sinus Drainage Cardiovascular: Denies: Chest Pain, Palpitations Respiratory: Denies: Cough, Shortness of breath at rest, Sputum production Gastrointestinal: Denies: Abdominal Pain, Nausea, Vomiting Genitourinary: Denies: Dysuria Musculoskeletal: Denies: Joint Pain, Joint Tenderness Skin: Denies: Rash, Wounds Neurological: Denies: Numbness, Tingling, Focal weakness Psychiatric: Denies: Anxiety, Depression, Homicidal Ideations, Suicidal Ideations Hematologic/ Lymphatic: Denies: Easy Bruising, Easy Bleeding VTE Information - Inpt Only VTE Present on Admission: No VTE Mechan Device Prophylaxis: Knee High ALICE Hose VTE Pharm Prophylaxis ordered?: No Reason prophylaxis not ordered:: Treatment Not Indicated Patient Problems: Active and Suspected Problems (Last Updated 11/08/20 @ 11:27 by Tierra Valentine) Debility (Acute) Abdominal pain (Acute) Hypokalemia (Acute) Jaundice (Acute) Pancreatic cancer (Acute) New onset atrial fibrillation (Acute) - Physical Exam Vitals/I&O's: Vital Signs Temp Pulse Resp BP Pulse Ox 98.5 F 90 16 120/42 L 92 11/30/20 13:44 11/30/20 17:44 11/30/20 14:18 11/30/20 17:44 11/30/20 14:18 Oxygen Delivery Method Room Air Weight: 59.534 kg Body Mass Index (BMI) 25.7 General: Alert, Oriented x3, Cooperative HEENT: Atraumatic, PERRLA, EOMI, Normocephalic Neck: Supple, No JVD, Negative Carotid Bruits Lungs: Clear to auscultation, Normal air movement Cardiovascular: Regular rate, No murmurs Abdomen: Bowel Sounds Present, Soft, Non Tender Extremities: No edema, Capillary Refill Less than 3 Seconds Skin: No rashes, No breakdown Musculoskeletal: No Tenderness to Palpation of Joints or Extremities Neurological: Cranial nerves II-XII grossly intact Psych/Mental Status: Normal Affect, Appropriate Current Medications Amlodipine Besylate (Amlodipine 10 Mg Tablet) 10 mg PO DAILY [facility] Amoxicillin/Clavulanate Potassium (Amox/Clavulanate 500 Mg Tablet) 500 mg PO 0800,1999 [facility] Stop: 12/06/20 20:00 Last Admin: 11/30/20 21:53 Dose: 500 mg Documented by: Apixaban (Apixaban 5 Mg Tablet) 5 mg PO BID [facility] Last Admin: 11/30/20 17:44 Dose: 5 mg Documented by: Ergocalciferol (Ergocalciferol 50,000 Unit Capsule) 50,000 unit PO QMONTH [facility] Levothyroxine Sodium (Levothyroxine 75 Mcg Tablet) 75 mcg PO DAILY@0600 [facility] Lidocaine (Lidocaine 5% Patch) 1 patch TOPICAL DAILY [facility] Metoprolol Tartrate (Metoprolol Tartrate 50 Mg Tablet) 50 mg PO BID [facility] Last Admin: 11/30/20 17:44 Dose: 50 mg Documented by: Ondansetron HCl (Ondansetron Odt 4 Mg Tablet) 4 mg PO TID PRN PRN PRN Reason: NAUSEA/VOMITING Oxycodone HCl (Oxycodone 5 Mg Tablet) 5 mg PO Q6H PRN PRN PRN Reason: Pain Score 6-10 Last Admin: 11/30/20 19:06 Dose: 5 mg Documented by: Polyethylene Glycol (Polyethylene Glycol 3350 17 Gm Packet) 17 gm PO DAILY PRN PRN PRN Reason: Constipation Ramipril (Ramipril 5 Mg Capsule) 5 mg PO DAILY [facility] Tuberculin PPD (Tuberculin,Purif.Prot.Deriv. 50 Tu/Ml Vial) 5 tu ID X1 ONE Stop: 12/01/20 10:01 Tuberculin PPD (Tuberculin,Purif.Prot.Deriv. 50 Tu/Ml Vial) 5 tu ID X1 ONE Stop: 12/08/20 10:01 Venlafaxine HCl (Venlafaxine Xr 37.5 Mg Capsule) 37.5 mg PO DAILY [facility] Assessment/Plan All Active Problems (Last Updated 11/08/20 @ 11:27 by Tierra Valentine) Debility (Acute) Abdominal pain (Acute) Hypokalemia (Acute) Jaundice (Acute) Pancreatic cancer (Acute) New onset atrial fibrillation (Acute) Atrial fibrillation with rapid ventricular response (Acute 11/05/20) Dizziness (Resolved) Lightheadedness (Resolved) 80 year old female with below past medical hospitalized for nausea, vomiting, jaundice secondary to pancreatic mass,biopsy showed adenocarcinoma, patient considering treatment, admitted to TCU with debility, here for rehabilitation, strengthening, prior to discharge home alone with hospice. * Debility - PT/OT. * Pain - Tylenol 1000MG Q6H PRN pain (1-5), Oxycodone 5MG Q6H PRN pain (6-10). * Bowel - Miralax 17GM daily, Senna/colace 2 tablets BID, MOM 30ML daily PRN, Dulcolax 10MG daily PRN, Lidoderm patch topical daily. * Adult immunization - Administer Prevnar 13, Pneumovax 23, Fluzone, COVID19 vaccine as appropriate. * DVT prophylaxis - Not necessary, Eliquis 5MG BID. * Hypertension - Amlodipine 10MG daily. * Cholangitis. - Augmentin 500MG BID thru 12/09/20. * Atrial Fibrillation - Metoprolol 50MG BID, Eliquis 5MG BID. * Vitamin D deficiency - D2 50,000 units per month. * Hypothyroidism - Levothyroxine 75MCG daily. * Nausea - Zofran 4MG TID PRN. * Dry Eyes - Artificial Tears 1 GTT OU Q2H PRN. * Hypertension - Ramipril 5MG daily. * Depression - Venlafaxine 37.5MG daily, stable chronic senior living use, GDR not recommended. * Pancreatic cancer - Resident would like to get stronger prior to considering treatment options.
[2020-12-01 05:00] VITALS: BP 132/56; PULSE 71; RESP 16; TEMP 36.4; O2SAT 100
[2020-12-01 05:39] LABS: Absolute Lymphocyte Count 1.38 X10^3/uL (0.83-4.51); Absolute Neutrophil Count 7.6 X10^3/uL (2.0-7.7); Basophil# 0.12 X10^3/uL; Basophil% 1.1 % (0-1); Eosinophil# 0.71 X10^3/uL; Eosinophils% 6.3 % (0-5); Hematocrit 29.3 % (37-47); Lymphocyte # 1.38 X10^3/ul (0.83-4.51); Lymphocyte % 12.2 % (19-41); Mean Corp Hgb Conc 30.7 g/dL (32-36); Mean Corpuscular Hgb 28.2 pg (27.0-32.0); Mean Corpuscular Volume 91.8 fL (81-99); Mean Platelet Vol. 11.8 fl (6.2-12.0); Monocyte# 1.31 X10^3/uL; Monocyte% 11.6 % (0-10); NRBC Flagged by Analyzer 0 % (0-5); Neutrophil # 7.64 X10^3/uL (2.7-7.7); Neutrophil % 67.2 % (47-70); POSITIVE MORPHOLOGY YES; Platelet Count 435 K/mm3 (150-450); RBC Distribution Width CV 21.2 % (11.6-14.6); RBC Distribution Width SD 69.9 fl (35.1-43.9); Red Blood Count 3.19 M/mm3 (4.2-5.4); White Blood Count 11.3 K/mm3 (4.4-11.0)
[2020-12-01 05:43] LABS: Differential Indicated SCAN CRITERIA MET
[2020-12-01 05:58] LABS: Anion Gap 2 (5-15); BUN 21 mg/dL (7-18); BUN/Creat Ratio 20.6 RATIO (10-20); Calcium,Total 9.2 mg/dL (8.5-10.1); Chloride 97 mmol/L (98-107); Creatinine, Serum 1.02 mg/dL (0.55-1.02); EST Glomerular Filtration Rate 55 mL/min (>60); Est Glom Filt Rate - Afr Amer 67 mL/min (>60); Estimated Creatinine Clearance 30.54 ml/min; Glucose 99 mg/dL (74-106); Potassium 3.7 mmol/L (3.5-5.1); Sodium Level 134 mmol/L (136-145)
[2020-12-01] MEDS: Lidocaine 5% Patch 1 PATCH TOPICAL (06:41)
[2020-12-01 06:44] VITALS: BP 102/45; PULSE 103
[2020-12-01] MEDS: amLODIPine 10 MG Tablet PO (06:44)
[2020-12-01] MEDS: Venlafaxine XR 37.5 MG Capsule PO (06:44)
[2020-12-01] MEDS: APIXABAN 5 MG TABLET PO ×2 (06:44→17:15)
[2020-12-01] MEDS: Metoprolol Tartrate 50 MG Tablet PO ×2 (06:44→17:15)
[2020-12-01] MEDS: Levothyroxine 75 MCG Tablet PO (06:44)
[2020-12-01] MEDS: Ramipril 5 MG Capsule PO (06:44)
[2020-12-01] MEDS: Senna/Docusate Sodium 1 Tablet 2 TABLET PO (06:46)
[2020-12-01] MEDS: Amox/Clavulanate 500 MG Tablet PO ×2 (08:24→19:36)
[2020-12-01] MEDS: Acetaminophen 500 MG Tablet 1000 MG PO (08:27)
[2020-12-01] MEDS: Ondansetron ODT 4 MG Tablet PO ×2 (13:26→20:58)
[2020-12-01] MEDS: Tuberculin,Purif.prot.deriv. 50 TU/ML Vial 5 ML ID (13:27)
--- NOTE | 2020-12-01 16:28 | PCM.PN.RX ---
<Maria Dolores Wynn - Last Filed: 12/01/20 16:28> Progress Note - Pharmacy Subjective: TCU Admission Objective: Allergies ezetimibe [From Zetia] Allergy (Verified 11/05/20 09:29) Rash Current Medications Generic Name Dose Route Start Last Admin Trade Name Freq PRN Reason Stop Dose Admin Acetaminophen 1,000 mg 11/30/20 23:08 12/01/20 08:27 Acetaminophen 500 Mg Tablet PO 1,000 mg Q6H PRN PRN Administration Pain Score 1-5 Amlodipine Besylate 10 mg 12/01/20 06:00 12/01/20 06:44 Amlodipine 10 Mg Tablet PO 10 mg DAILY [facility] Administration Amoxicillin/Clavulanate Potassium 500 mg 11/30/20 20:00 12/01/20 08:24 Amox/Clavulanate 500 Mg Tablet PO 12/06/20 20:00 500 mg 0800,2000 [facility] Administration Apixaban 5 mg 11/30/20 18:00 12/01/20 06:44 Apixaban 5 Mg Tablet PO 5 mg BID [facility] Administration Bisacodyl 10 mg 11/30/20 23:09 Bisacodyl 5 Mg Tablet PO DAILY PRN PRN Constipation Ergocalciferol 50,000 unit 12/13/20 08:00 Ergocalciferol 50,000 Unit Capsule PO QMONTH [facility] Levothyroxine Sodium 75 mcg 12/01/20 06:00 12/01/20 06:44 Levothyroxine 75 Mcg Tablet PO 75 mcg DAILY@0600 [facility] Administration Lidocaine 1 patch 12/01/20 06:00 12/01/20 06:41 Lidocaine 5% Patch TOPICAL 1 patch DAILY [facility] Administration Magnesium Hydroxide 30 ml 11/30/20 23:09 Magnesium Hydroxide 30 Ml Udc PO DAILY PRN Constipation Metoprolol Tartrate 50 mg 11/30/20 18:00 12/01/20 06:44 Metoprolol Tartrate 50 Mg Tablet PO 50 mg BID [facility] Administration Ondansetron HCl 4 mg 11/30/20 14:48 12/01/20 13:26 Ondansetron Odt 4 Mg Tablet PO 4 mg TID PRN PRN Administration NAUSEA/VOMITING Oxycodone HCl 5 mg 11/30/20 14:24 11/30/20 19:06 Oxycodone 5 Mg Tablet PO 5 mg Q6H PRN PRN Administration Pain Score 6-10 Polyethylene Glycol 17 gm 12/01/20 06:00 12/01/20 06:51 Polyethylene Glycol 3350 17 Gm Packet PO Not Given DAILY [facility] Ramipril 5 mg 12/01/20 06:00 12/01/20 06:44 Ramipril 5 Mg Capsule PO 5 mg DAILY [facility] Administration Senna/Docusate Sodium 2 tablet 12/01/20 06:00 12/01/20 06:46 Senna/Docusate Sodium 1 Tablet PO 2 tablet BID [facility] Administration Tuberculin PPD 5 tu 12/08/20 10:00 Tuberculin,Purif.Prot.Deriv. 50 Tu/Ml Vial ID 12/08/20 10:01 X1 ONE Venlafaxine HCl 37.5 mg 12/01/20 06:00 12/01/20 06:44 Venlafaxine Xr 37.5 Mg Capsule PO 37.5 mg DAILY [facility] Administration Problem List (Last Updated 11/08/20 @ 11:27 by Tierra Valentine) Debility (Acute) Abdominal pain (Acute) Hypokalemia (Acute) Jaundice (Acute) Pancreatic cancer (Acute) Chronic kidney disease (Chronic) Hypothyroidism (Chronic) Depression (Chronic) Hypertension (Chronic) Osteoarthritis (Chronic) New onset atrial fibrillation (Acute) Coronary artery disease (Chronic) Breast cancer (Chronic) Pulmonary hypertension (Chronic) Hyperlipidemia (Chronic) Vital Signs Temp Pulse Resp BP Pulse Ox 97.5 F L 103 H 16 102/45 L 100 12/01/20 05:00 12/01/20 06:44 12/01/20 05:00 12/01/20 06:44 12/01/20 05:00 Oxygen Delivery Method Room Air Weight: 59.534 kg Body Mass Index (BMI) 25.7 Sodium 134 mmol/L (136-145) L 12/01/20 05:15 Potassium 3.7 mmol/L (3.5-5.1) 12/01/20 05:15 Chloride 97 mmol/L (98-107) L 12/01/20 05:15 Carbon Dioxide 35.0 mmol/L (21.0-32.0) H 12/01/20 05:15 Anion Gap 2 (5-15) L 12/01/20 05:15 BUN 21 mg/dL (7-18) H 12/01/20 05:15 Creatinine 1.02 mg/dL (0.55-1.02) 12/01/20 05:15 Est GFR (MDRD) Af Amer 67 mL/min (>60) 12/01/20 05:15 Est GFR (MDRD) Non-Af 55 mL/min (>60) L 12/01/20 05:15 BUN/Creatinine Ratio 20.6 RATIO (10-20) H 12/01/20 05:15 Glucose 99 mg/dL (74-106) 12/01/20 05:15 Assessment/Plan: 1. Pain: acetaminophen 1000mg PO Q6H PRN pain 1-5/10, oxycodone 5mg PO Q6H PRN pain 6-10/10, and lidocaine 5% patch 1 patch topically daily. Please continue to monitor for increased pain, PRN usage, constipation and respiratory depression. 2. Cholangitis: amoxicillin/clavulanate acid 500mg PO BID thru 12/06/20. Please continue to monitor for diarrhea, renal function and S/S of infection. 3. Hypertension/atrial fibrillation: amlodipine 10mg PO daily, metoprolol tartrate 50mg PO BID, apixaban 5mg PO BID, and ramipril 5mg PO daily. Please continue to monitor for S/S of bleeding, hemoglobin (last 9g/dL), BP (last 102/45), HR (last 103), swelling, potassium (last 3.7mmol/L), cough, and renal function. 4. Hypothyroidism: levothyroxine 75mcg PO daily. Please continue to monitor for S/S of hypo/hyperthyroidism and TSH (last 10/2020). 5. Nausea: ondansetron 4mg PO TID PRN nausea/vomiting. Please continue to monitor for nausea, vomiting, and PRN usage. 6. Dry eyes: artificial tears 1gtt OU Q2H PRN dry eyes. Please continue to monitor for dry eyes and PRN usage. 7. Vitamin D deficiency: ergocalciferol 50,000units PO monthly. Please continue to monitor vitamin D levels (last 11/05/20). Psychotropic Medications: 1. Depression: venlafaxine XR 37.5mg PO daily. Please see physician note regrading GDR. Thanks. Unnecessary Medications: None Bowel Regimen: Miralax 17gm PO daily, senna/docusate 2T PO BID, MOM 30mL PO daily PRN constipation, and bisacodyl 10mg PO daily PRN constipation. Please continue to monitor for constipation and PRN usage. Date of Note:: 12/01/20 - Provider Comments Provider responsibility: Provider responsible to enter orders to implement recommendations <Clive Lewis Chi - Last Filed: 12/01/20 17:09> Progress Note - Pharmacy Subjective: [] Objective: Allergies ezetimibe [From Zetia] Allergy (Verified 11/05/20 09:29) Rash Current Medications Generic Name Dose Route Start Last Admin Trade Name Freq PRN Reason Stop Dose Admin Acetaminophen 1,000 mg 11/30/20 23:08 12/01/20 08:27 Acetaminophen 500 Mg Tablet PO 1,000 mg Q6H PRN PRN Administration Pain Score 1-5 Amlodipine Besylate 10 mg 12/01/20 06:00 12/01/20 06:44 Amlodipine 10 Mg Tablet PO 10 mg DAILY [facility] Administration Amoxicillin/Clavulanate Potassium 500 mg 11/30/20 20:00 12/01/20 08:24 Amox/Clavulanate 500 Mg Tablet PO 12/06/20 20:00 500 mg 0800,2000 [facility] Administration Apixaban 5 mg 11/30/20 18:00 12/01/20 06:44 Apixaban 5 Mg Tablet PO 5 mg BID [facility] Administration Bisacodyl 10 mg 11/30/20 23:09 Bisacodyl 5 Mg Tablet PO DAILY PRN PRN Constipation Ergocalciferol 50,000 unit 12/13/20 08:00 Ergocalciferol 50,000 Unit Capsule PO QMONTH [facility] Levothyroxine Sodium 75 mcg 12/01/20 06:00 12/01/20 06:44 Levothyroxine 75 Mcg Tablet PO 75 mcg DAILY@0600 [facility] Administration Lidocaine 1 patch 12/01/20 06:00 12/01/20 06:41 Lidocaine 5% Patch TOPICAL 1 patch DAILY [facility] Administration Magnesium Hydroxide 30 ml 11/30/20 23:09 Magnesium Hydroxide 30 Ml Udc PO DAILY PRN Constipation Metoprolol Tartrate 50 mg 11/30/20 18:00 12/01/20 06:44 Metoprolol Tartrate 50 Mg Tablet PO 50 mg BID [facility] Administration Ondansetron HCl 4 mg 11/30/20 14:48 12/01/20 13:26 Ondansetron Odt 4 Mg Tablet PO 4 mg TID PRN PRN Administration NAUSEA/VOMITING Oxycodone HCl 5 mg 11/30/20 14:24 11/30/20 19:06 Oxycodone 5 Mg Tablet PO 5 mg Q6H PRN PRN Administration Pain Score 6-10 Polyethylene Glycol 17 gm 12/01/20 06:00 12/01/20 06:51 Polyethylene Glycol 3350 17 Gm Packet PO Not Given DAILY [facility] Ramipril 5 mg 12/01/20 06:00 12/01/20 06:44 Ramipril 5 Mg Capsule PO 5 mg DAILY [facility] Administration Senna/Docusate Sodium 2 tablet 12/01/20 06:00 12/01/20 06:46 Senna/Docusate Sodium 1 Tablet PO 2 tablet BID [facility] Administration Tuberculin PPD 5 tu 12/08/20 10:00 Tuberculin,Purif.Prot.Deriv. 50 Tu/Ml Vial ID 12/08/20 10:01 X1 ONE Venlafaxine HCl 37.5 mg 12/01/20 06:00 12/01/20 06:44 Venlafaxine Xr 37.5 Mg Capsule PO 37.5 mg DAILY [facility] Administration Problem List (Last Updated 11/08/20 @ 11:27 by Tierra Valentine) Debility (Acute) Abdominal pain (Acute) Hypokalemia (Acute) Jaundice (Acute) Pancreatic cancer (Acute) Chronic kidney disease (Chronic) Hypothyroidism (Chronic) Depression (Chronic) Hypertension (Chronic) Osteoarthritis (Chronic) New onset atrial fibrillation (Acute) Coronary artery disease (Chronic) Breast cancer (Chronic) Pulmonary hypertension (Chronic) Hyperlipidemia (Chronic) Vital Signs Temp Pulse Resp BP Pulse Ox 97.5 F L 103 H 16 102/45 L 100 12/01/20 05:00 12/01/20 06:44 12/01/20 05:00 12/01/20 06:44 12/01/20 05:00 Oxygen Delivery Method Room Air Weight: 59.534 kg Body Mass Index (BMI) 25.7 Sodium 134 mmol/L (136-145) L 12/01/20 05:15 Potassium 3.7 mmol/L (3.5-5.1) 12/01/20 05:15 Chloride 97 mmol/L (98-107) L 12/01/20 05:15 Carbon Dioxide 35.0 mmol/L (21.0-32.0) H 12/01/20 05:15 Anion Gap 2 (5-15) L 12/01/20 05:15 BUN 21 mg/dL (7-18) H 12/01/20 05:15 Creatinine 1.02 mg/dL (0.55-1.02) 12/01/20 05:15 Est GFR (MDRD) Af Amer 67 mL/min (>60) 12/01/20 05:15 Est GFR (MDRD) Non-Af 55 mL/min (>60) L 12/01/20 05:15 BUN/Creatinine Ratio 20.6 RATIO (10-20) H 12/01/20 05:15 Glucose 99 mg/dL (74-106) 12/01/20 05:15 Assessment/Plan: Psychotropic Medications: Unnecessary Medications: Bowel Regimen: - Provider Comments Provider responsibility: Provider responsible to enter orders to implement recommendations Provider Comments to Recommendations by Pharmacy: Agree
[2020-12-01 17:15] VITALS: BP 161/53; PULSE 82
[2020-12-02 06:06] VITALS: BP 127/45; PULSE 84; RESP 18; TEMP 36.2; O2SAT 95
[2020-12-02] MEDS: Lidocaine 5% Patch 1 PATCH TOPICAL (06:08)
[2020-12-02 06:09] VITALS: BP 127/45; PULSE 84
[2020-12-02] MEDS: amLODIPine 10 MG Tablet PO (06:09)
[2020-12-02] MEDS: Metoprolol Tartrate 50 MG Tablet PO ×2 (06:09→17:10)
[2020-12-02] MEDS: Ramipril 5 MG Capsule PO (06:09)
[2020-12-02] MEDS: Venlafaxine XR 37.5 MG Capsule PO (06:09)
[2020-12-02] MEDS: APIXABAN 5 MG TABLET PO ×2 (06:10→17:10)
[2020-12-02] MEDS: Senna/Docusate Sodium 1 Tablet 2 TABLET PO (06:10)
[2020-12-02] MEDS: Levothyroxine 75 MCG Tablet PO (06:11)
[2020-12-02] MEDS: Amox/Clavulanate 500 MG Tablet PO ×2 (08:37→22:20)
--- NOTE | 2020-12-02 10:48 | CASEMGMT ---
Social Work Met with patient for initial assessment. Discussed code status. Pt confirms DNR-CCA, no intubation. MOLST form reviewed, communication to , and placed in chart. Pt wishes to have sister in law, Ginna, contacted as primary contact, but reports dtr, Florence, is HCPOA. No forms on file. Palliative Tool completed and qualifies for Palliative. Pt agreeable. Referral made to [facility]. Explained Medicare benefit and encouraged to contact secondary insurance to ensure copay coverage. Pt's goal is to return home alone, but limited family support. Dtr does not drive nor is very involved in pt's care. BLAISE is very supportive. SW to continue to follow. Kerrie Rodriguez, B[employer] OPERATOR PROJECT MANAGEMENT IT SPECIALIST
[2020-12-02] MEDS: Ondansetron ODT 4 MG Tablet PO (12:28)
--- NOTE | 2020-12-02 12:31 | NURSING ---
Addendum entered by Leslie Block 12/02/20 12:32: Patient does not know if nausea is from jaundice or the cancer. Would like to speak to doctor when he comes in. Will leave note for Dr. Lewis. Original Note: Patient complained of nausea. Given PRN Zofran. Will continue to monitor.
[2020-12-02 14:45] VITALS: BP 120/55; PULSE 84; RESP 18; TEMP 36.6; O2SAT 96
[2020-12-02 17:10] VITALS: BP 120/55; PULSE 84
[2020-12-02] MEDS: 0.9% Normal Saline 1,000 ML 60 ML IV (19:09)
[2020-12-02] MEDS: Metoclopramide 10 MG/2 ML Vial 5 MG IV (19:12)
[2020-12-02 22:20] VITALS: PULSE 86; RESP 16; O2SAT 93
[2020-12-03] MEDS: Metoclopramide 10 MG/2 ML Vial 5 MG IV ×3 (01:23→11:24)
[2020-12-03 05:00] VITALS: BP 122/58; PULSE 86; RESP 16; TEMP 36.9; O2SAT 97
[2020-12-03] MEDS: Ramipril 5 MG Capsule PO (05:47)
[2020-12-03 05:48] VITALS: BP 122/58; PULSE 86
[2020-12-03] MEDS: Metoprolol Tartrate 50 MG Tablet PO ×2 (05:48→16:54)
[2020-12-03] MEDS: Venlafaxine XR 37.5 MG Capsule PO (05:48)
[2020-12-03] MEDS: APIXABAN 5 MG TABLET PO ×2 (05:48→16:54)
[2020-12-03] MEDS: Levothyroxine 75 MCG Tablet PO (05:49)
[2020-12-03] MEDS: Polyethylene Glycol 3350 17 GM PACKET PO (05:49)
[2020-12-03] MEDS: Senna/Docusate Sodium 1 Tablet 2 TABLET PO (05:49)
[2020-12-03] MEDS: amLODIPine 10 MG Tablet PO (05:49)
[2020-12-03] MEDS: Amox/Clavulanate 500 MG Tablet PO ×2 (08:34→21:20)
[2020-12-03] MEDS: 0.9% Normal Saline 1,000 ML 60 ML IV (11:25)
--- NOTE | 2020-12-03 11:50 | PCM.CONS.P ---
Problem List (1) Debility Status: Acute (2) Abdominal pain Status: Acute (3) Pancreatic cancer Status: Acute (4) Chronic kidney disease Status: Chronic (5) Hypothyroidism Status: Chronic (6) Depression Status: Chronic (7) Hypertension Status: Chronic (8) Osteoarthritis Status: Chronic (9) New onset atrial fibrillation Status: Acute (10) Coronary artery disease Status: Chronic (11) Breast cancer Status: Chronic (12) Pulmonary hypertension Status: Chronic (13) Atrial fibrillation with rapid ventricular response Status: Acute (14) Essential (primary) hypertension Status: Chronic (15) Non-rheumatic tricuspid valve insufficiency Status: Chronic (16) Nonrheumatic mitral (valve) insufficiency Status: Chronic (17) Secondary pulmonary arterial hypertension Status: Chronic (18) Hyperlipidemia Status: Chronic History of Present Illness Date of Consult: 12/03/20 Reason for Consult: uncontrolled nausea, stg 4 pancreatic cancer Requesting physician: Dr. Lewis Primary care physician: Jf Lewis, EAP COUNSELOR-C - History of Present Illness The patient is a 80 year old F with PMH as below, presented to the ED 11/05/2020 with complaints of lightheadedness, nausea, and dizziness. EKG showed A. fib with RVR, treated medically and was converted to normal sinus rhythm. Patient also had an AMBROSIO at with a creatinine of 1.53. Troponin was mildly elevated. She was admitted to the progressive care unit for further evaluation management. Echocardiogram revealed normal EF and moderate pulmonary hypertension. An elevation in troponin, she underwent a cardiac catheterization which showed nonobstructive CAD. She was then discharged 11/06/2020 home. Patient is anticoagulated on Eliquis secondary to A. fib. Patient was then admitted to [facility] from [place]. She presented with myalgia, jaundice, and nausea and vomiting. She was hypokalemic at 2.7 and had elevated LFTs. CT the abdomen showed dilated intra and extrahepatic biliary system. She had an MRCP on 11/23 which showed a pancreatic mass, distended gallbladder with layering debris, and moderate to large hiatal hernia. CT the abdomen 11/24 showed pancreatic head mass and hiatal hernia. Carotid Doppler ultrasound 11/26 revealed less than 50% stenosis bilateral carotid arteries. Patient underwent EUS/ERCP pancreatic mass with distal CBD stricture, sphincterotomy and stent x3. The pathology showed adenocarcinoma of the pancreas. She was discharged on Augmentin through 12/09, and was discharged to TCU for further rehab. Her goal is to return home and be able to discuss treatment options for her pancreatic cancer. They have considered hospice. Patient lives home alone in a mobile home with ramp entrance. She is typically independent with all ADLs. She drives herself and has no current DME. She does not smoke or drink alcohol. Her PCP is Dr. Kiser. Preferred pharmacy is [facility]. She has a living will and her healthcare power of business technology teacher is her daughter, Florence Young. She does not have a lot of assistance or support, with the exception of her [id number]. States there is some issues but does not elaborate. We discussed current options to treat her nausea, goal currently is to control nausea and vomiting, improve overall symptomology and quality of life. Patient Problems: Chronic Problems (Last Updated 11/08/20 @ 11:27 by Tierra Valentine) Chronic kidney disease (Chronic) Hypothyroidism (Chronic) Depression (Chronic) Hypertension (Chronic) Osteoarthritis (Chronic) Coronary artery disease (Chronic) Breast cancer (Chronic) Pulmonary hypertension (Chronic) Essential (primary) hypertension (Chronic) Non-rheumatic tricuspid valve insufficiency (Chronic) Nonrheumatic mitral (valve) insufficiency (Chronic) Secondary pulmonary arterial hypertension (Chronic) Hyperlipidemia (Chronic) Surgical History: mastectomy - Bilateral., - - Breast lumpectomy November 2020: ERCP/sphincterotomy/stent x3 CBD Psychiatric History: Depression Home Medications: Ambulatory Orders Medication Instructions Recorded Calcium (Elemental) [Caltrate-600] 1,500 mg PO DAILY@0800 11/09/13 Levothyroxine Sodium [Levoxyl] 75 mcg PO DAILY 11/09/13 Venlafaxine XR [Effexor Xr] 37.5 mg PO DAILY 11/09/13 Ergocalciferol [Vitamin D] 1 tablet PO QMONTH 11/05/20 Amlodipine [Norvasc] 10 mg PO DAILY 11/30/20 Amoxicillin/Potassium Clav 1 each PO Q12H PRN PRN 11/30/20 [Augmentin 500-125 Tablet] Apixaban [Eliquis] 5 mg PO BID 11/30/20 Lidocaine 1 each TOPICAL DAILY 11/30/20 Metoprolol Tartrate [Lopressor 50 mg PO BID 11/30/20 (beta ninfa)] Ondansetron HCl [Zofran] 4 mg PO TID PRN 11/30/20 Oxycodone [Oxyir] 5 mg PO Q6H PRN PRN 11/30/20 Peg 400/Hypromellose/Glycerin 1 drp EACH EYE Q2H PRN 11/30/20 [Artificial Tears] Polyethylene Glycol 3350 [Miralax] 17 gm PO DAILY PRN 11/30/20 Ramipril [Altace] 5 mg PO DAILY 11/30/20 Allergies ezetimibe [From Zetia] Allergy (Verified 11/05/20 09:29) Rash Maternal History Items: No pertinent history Paternal History Items: - - due to accident - Social History Lives: Alone Smoking Status: Never smoker Tobacco Use: Non-smoker Alcohol: None Drugs: None Code Status: DNRCC-A Review of Systems Constitutional: Reports: Anorexia, Malaise, Weakness, Fatigue. Denies: Chills, Fever, Weight Change Eyes: Denies: Vision Change HEENT: Denies: Difficulty Swallowing, Head Aches, Sinus Congestion, Sinus Drainage, Sore Throat Cardiovascular: Reports: Light Headedness. Denies: Chest Pain, Edema, Palpitations Respiratory: Denies: Cough, Shortness of Breath, Sputum production, Wheezing Gastrointestinal: Reports: Nausea, Vomiting, - - no abdominal pain. Denies: Abdominal Pain, Constipation, Diarrhea Genitourinary: Denies: Dysuria Musculoskeletal: Denies: Back Pain, Joint Pain, Joint Tenderness Skin: Denies: Rash, Wounds Neurological: Denies: Numbness, Tingling, Focal weakness Psychiatric: Denies: Anxiety, Depression, Homicidal Ideations, Suicidal Ideations Hematologic/ Lymphatic: Denies: Easy Bruising, Easy Bleeding Physical Exam Subjective: Lying in bed, appears ill. Unable to move without nausea. General: Oriented x3, Cooperative, Lethargic - But arousable, very fatigued HEENT: Atraumatic, Normocephalic Oral: Dry Mucosa Neck: Supple, Trachea Midline Lungs: Clear to auscultation, Diminished Cardiovascular: Normal S1, Normal S2, Irregular Rate Abdomen: Bowel Sounds Present, Soft, Tender Extremities: No edema Skin: No rashes Musculoskeletal: Cachexia Neurological: Neuro grossly intact Psych/Mental Status: Flat Affect Objective: Vital Signs Temp Pulse Resp BP Pulse Ox 98.4 F 86 16 122/58 H 97 12/03/20 05:00 12/03/20 05:48 12/03/20 05:00 12/03/20 05:48 12/03/20 05:00 Oxygen Delivery Method Room Air Weight: 59.449 kg Body Mass Index (BMI) 25.7 Intake and Output for Last 24 Hours 12/01/20 12/02/20 12/03/20 23:59 23:59 23:59 Intake Total 240 / 240 240 / 240 1276 / 1276 Balance 240 / 240 240 / 240 1276 / 1276 Assessment/Plan All Active Problems (Last Updated 11/08/20 @ 11:27 by Tierra Valentine) Debility (Acute) Abdominal pain (Acute) Hypokalemia (Acute) Jaundice (Acute) Pancreatic cancer (Acute) New onset atrial fibrillation (Acute) Atrial fibrillation with rapid ventricular response (Acute 11/05/20) Dizziness (Resolved) Lightheadedness (Resolved) 80-year-old female seen today for initial palliative care consultation due to controlled nausea and vomiting, debility, and new diagnosis of pancreatic cancer. 1. Nausea and vomiting: Has Zofran ODT 4 mg TID as needed, 12/02 added Reglan 5 mg IV every 6 hours scheduled and normal saline at 60 mL/hr. Recommendations: -Continue normal saline at 60 mL/h -Increase Reglan to 10 mg IV every 6h -Start dexamethasone 4 mg IV daily, first dose today, typically has good success with persistent nausea when given in conjunction w/ other antiemetics -Schedule Zofran 8 mg every 8 hours -PRN phenergan 12.5mg q8h if refractory to other meds 2. Abdominal pain: improved. c/w above plan 3. CKD/hypothyroidism/depression anxiety/HTN/HLD/pulmonary hypertension/new onset atrial fibrillation/CAD/OA: Complicates overall care and management. Patient will continue to follow-up with her specialists and PCP, as well as oncology when she is out of rehab so she can weigh her options for plan of care moving forward with her cancer diagnosis. If above plan is ineffective, will readjust medications tomorrow. Call with any questions or concerns. Thank you for the opportunity to participate in this patient's care, please do not hesitate to contact [facility] with any further questions or concerns. Palliative direct line is [phone]. We will have RN follow up approximately 3 days after discharge to home and will discuss palliative services further at that time. Greater than 50% of F2F visit dedicated to education and counseling of palliative care services, medications, comorbid conditions and potential assistance with management, and plan of care moving forward. Start time: 1136 End time: 1244
--- NOTE | 2020-12-03 12:27 | CASEMGMT ---
Social Work IDT met with patient and BLAISE for care plan meeting. Discussed patient's progress in therapy and nursing. has IV nausea meds scheduled to assist and the goal is to focus on strengthening with therapy. Explaiend Medicare benefit and encouraged to contact secondary insurance to ensure copay coverage. The goal is for pt to return home alone but BLAISE support as needed. SW to continue to follow. Kerrie Rodriguez, TUNNELING MACHINE OPERATOR FLYER MAKER
--- NOTE | 2020-12-03 12:54 | NURSING ---
GINI LIPSCOMB TRAY LINE SUPERVISOR ENTERED NEW ORDERS. ALSO, TOLD THIS NURSE TO GIVE 5MG REGLAN NOW BECAUSE SHE INCREASED TO 10MG AND WANTS HER TO HAVE 5MG MORE (RECEIVED 5MG AT LUNCH BEFORE NEW ORDER WAS ENTERED).
[2020-12-03] MEDS: Metoclopramide 10 MG/2 ML Vial IV ×2 (13:00→16:55)
[2020-12-03] MEDS: Ondansetron ODT 4 MG Tablet 8 MG PO ×2 (13:00→21:20)
[2020-12-03] MEDS: dexAMETHasone 4 MG/ML Vial IV (13:27)
[2020-12-03 14:56] VITALS: BP 129/63; PULSE 84; RESP 20; TEMP 37.2; O2SAT 95
[2020-12-03 16:54] VITALS: PULSE 84
--- NOTE | 2020-12-03 23:22 | PCA ---
Pt declined to wash up or change her gown, stating she prefers am care. em
[2020-12-04 00:18] VITALS: BP 133/66; PULSE 76; RESP 16; TEMP 35.8; O2SAT 96
[2020-12-04] MEDS: Metoclopramide 10 MG/2 ML Vial IV ×4 (00:20→18:36)
[2020-12-04] MEDS: 0.9% Normal Saline 1,000 ML 60 ML IV ×2 (04:22→20:30)
[2020-12-04 05:00] VITALS: BP 136/52; PULSE 79; RESP 16; TEMP 36; O2SAT 95
[2020-12-04] MEDS: Polyethylene Glycol 3350 17 GM PACKET PO (06:08)
[2020-12-04] MEDS: Ramipril 5 MG Capsule PO (06:09)
[2020-12-04] MEDS: Levothyroxine 75 MCG Tablet PO (06:09)
[2020-12-04] MEDS: amLODIPine 10 MG Tablet PO (06:09)
[2020-12-04 06:10] VITALS: BP 135/52; PULSE 79
[2020-12-04] MEDS: Venlafaxine XR 37.5 MG Capsule PO (06:10)
[2020-12-04] MEDS: APIXABAN 5 MG TABLET PO ×2 (06:10→18:38)
[2020-12-04] MEDS: Senna/Docusate Sodium 1 Tablet 2 TABLET PO (06:10)
[2020-12-04] MEDS: Metoprolol Tartrate 50 MG Tablet PO ×2 (06:10→18:38)
[2020-12-04] MEDS: Ondansetron ODT 4 MG Tablet 8 MG PO ×3 (06:12→20:39)
[2020-12-04] MEDS: dexAMETHasone 4 MG/ML Vial IV (06:16)
[2020-12-04] MEDS: Amox/Clavulanate 500 MG Tablet PO ×2 (08:17→20:38)
[2020-12-04 11:02] VITALS: PULSE 77; RESP 18; O2SAT 97
--- NOTE | 2020-12-04 15:03 | PCM.PN.PAL ---
Progress Note- Hospice Date: 12/04/20 Subjective: Patient sitting up in chair, appears much better today. She is working with therapy. Very talkative today, states her nausea is much better. She was able to take a couple bites of a [employer] cheeseburger today. She also had a milkshake, which tasted good and she had no increased nausea with this. Objective: Vital Signs Temp 96.8 F L 12/04/20 05:00 Pulse 77 12/04/20 11:02 Resp 18 12/04/20 11:02 BP 135/52 H 12/04/20 06:10 Pulse Ox 97 12/04/20 11:02 Intake & Output 12/02/20 12/03/20 12/04/20 23:59 23:59 23:59 Intake Total 240 / 240 1536 / 1536 1240 / 1240 Balance 240 / 240 1536 / 1536 1240 / 1240 Weight: 59.449 kg 59.449 kg Intake: Oral 240 / 240 560 / 560 240 / 240 Intake, IV Amount 976 / 976 1000 / 1000 0.9% Normal Saline 1,000 ML @ 976 / 976 1000 / 1000 60 mls/hr IV .[id number] [facility] Rx#: [id number] Other: Incontinent Amount Moderate Moderate Number of Bowel Movements 2 Current Medications Acetaminophen (Acetaminophen 500 Mg Tablet) 1,000 mg PO Q6H PRN PRN PRN Reason: Pain Score 1-5 Last Admin: 12/01/20 08:27 Dose: 1,000 mg Documented by: Amlodipine Besylate (Amlodipine 10 Mg Tablet) 10 mg PO DAILY [facility] Last Admin: 12/04/20 06:09 Dose: 10 mg Documented by: Amoxicillin/Clavulanate Potassium (Amox/Clavulanate 500 Mg Tablet) 500 mg PO 0800,1999 [facility] Stop: 12/06/20 20:00 Last Admin: 12/04/20 08:17 Dose: 500 mg Documented by: Apixaban (Apixaban 5 Mg Tablet) 5 mg PO BID [facility] Last Admin: 12/04/20 06:10 Dose: 5 mg Documented by: Bisacodyl (Bisacodyl 5 Mg Tablet) 10 mg PO DAILY PRN PRN PRN Reason: Constipation Dexamethasone Sodium Phosphate (Dexamethasone 4 Mg/Ml Vial) 4 mg IV DAILY [facility] Last Admin: 12/04/20 06:16 Dose: 4 mg Documented by: Ergocalciferol (Ergocalciferol 50,000 Unit Capsule) 50,000 unit PO QMONTH [facility] Sodium Chloride () 1,000 mls @ 60 mls/hr IV .[id number] [facility] Last Admin: 12/04/20 04:22 Dose: 60 mls/hr Documented by: Levothyroxine Sodium (Levothyroxine 75 Mcg Tablet) 75 mcg PO DAILY@0600 [facility] Last Admin: 12/04/20 06:09 Dose: 75 mcg Documented by: Magnesium Hydroxide (Magnesium Hydroxide 30 Ml Udc) 30 ml PO DAILY PRN PRN Reason: Constipation Metoclopramide HCl (Metoclopramide 10 Mg/2 Ml Vial) 10 mg IV Q6 [facility] Stop: 12/17/20 18:01 Last Admin: 12/04/20 11:31 Dose: 10 mg Documented by: Metoprolol Tartrate (Metoprolol Tartrate 50 Mg Tablet) 50 mg PO BID [facility] Last Admin: 12/04/20 06:10 Dose: 50 mg Documented by: Nutritional Formula (Lactose Free) (Ensure Enlive 120 Ml Liquid) 120 ml PO 4X/DAY [facility] Last Admin: 12/04/20 11:31 Dose: 120 ml Documented by: Ondansetron HCl (Ondansetron Odt 4 Mg Tablet) 8 mg PO Q8 [facility] Last Admin: 12/04/20 13:27 Dose: 8 mg Documented by: Oxycodone HCl (Oxycodone 5 Mg Tablet) 5 mg PO Q6H PRN PRN PRN Reason: Pain Score 6-10 Last Admin: 11/30/20 19:06 Dose: 5 mg Documented by: Polyethylene Glycol (Polyethylene Glycol 3350 17 Gm Packet) 17 gm PO DAILY [facility] Last Admin: 12/04/20 06:08 Dose: 17 gm Documented by: Promethazine HCl (Promethazine 25 Mg Tablet) 12.5 mg PO Q8H PRN PRN PRN Reason: NAUSEA/VOMITING Ramipril (Ramipril 5 Mg Capsule) 5 mg PO DAILY [facility] Last Admin: 12/04/20 06:09 Dose: 5 mg Documented by: Senna/Docusate Sodium (Senna/Docusate Sodium 1 Tablet) 2 tablet PO BID [facility] Last Admin: 12/04/20 06:10 Dose: 2 tablet Documented by: Tuberculin PPD (Tuberculin,Purif.Prot.Deriv. 50 Tu/Ml Vial) 5 tu ID X1 ONE Stop: 12/08/20 10:01 Venlafaxine HCl (Venlafaxine Xr 37.5 Mg Capsule) 37.5 mg PO DAILY [facility] Last Admin: 12/04/20 06:10 Dose: 37.5 mg Documented by: - Physical Exam General: Alert, Oriented x3, Cooperative, No apparent distress HEENT: Atraumatic, Normocephalic Oral: Moist Mucosa Neck: Supple, Trachea Midline Lungs: Clear to auscultation, Diminished Cardiovascular: Regular rate, Regular Rhythm, Normal S1, Normal S2 Abdomen: Bowel Sounds Present, Soft, Non Tender Extremities: No edema Neurological: Neuro grossly intact Psych/Mental Status: Normal Affect, Alert and oriented to time, place, person, mood and affect Assessment/Plan All Active Problems (Last Updated 11/08/20 @ 11:27 by Tierra Valentine) Debility (Acute) Abdominal pain (Acute) Hypokalemia (Acute) Jaundice (Acute) Pancreatic cancer (Acute) New onset atrial fibrillation (Acute) Atrial fibrillation with rapid ventricular response (Acute 11/05/20) Dizziness (Resolved) Lightheadedness (Resolved) 80-year-old female seen today for initial palliative care consultation due to controlled nausea and vomiting, debility, and new diagnosis of pancreatic cancer. 1. Nausea and vomiting in setting of pancreatic CA: improved today. Able to do therapy and have some PO intake without increased n/v Recommendations: -Continue normal saline at 60 mL/h -c/w Reglan to 10 mg IV every 6h -c/w dexamethasone 4 mg IV daily, typically has good success with persistent nausea when given in conjunction w/ other antiemetics -Zofran 8 mg every 8 hours scheduled -PRN phenergan 12.5mg q8h if refractory to other meds -I will f/u again tomorrow 2. Abdominal pain: improved. c/w above plan 3. CKD/hypothyroidism/depression anxiety/HTN/HLD/pulmonary hypertension/new onset atrial fibrillation/CAD/OA: Complicates overall care and management. Patient will continue to follow-up with her specialists and PCP, as well as oncology when she is out of rehab so she can weigh her options for plan of care moving forward with her cancer diagnosis. If above plan is ineffective, will readjust medications tomorrow. Call with any questions or concerns. [phone] Thank you for the opportunity to participate in this patient's care, please do not hesitate to contact [facility] with any further questions or concerns. Palliative direct line is [phone]. We will have RN follow up approximately 3 days after discharge to home and will discuss palliative services further at that time.
[2020-12-04 16:50] VITALS: BP 138/67; PULSE 77; RESP 18; TEMP 36.7; O2SAT 97
[2020-12-04 18:38] VITALS: BP 138/67; PULSE 77
[2020-12-05] MEDS: Metoclopramide 10 MG/2 ML Vial IV ×4 (00:37→17:04)
[2020-12-05 06:37] VITALS: BP 158/44; PULSE 82; RESP 16; TEMP 36.2; O2SAT 954
[2020-12-05] MEDS: Venlafaxine XR 37.5 MG Capsule PO (06:40)
[2020-12-05 06:41] VITALS: BP 158/44; PULSE 82
[2020-12-05] MEDS: amLODIPine 10 MG Tablet PO (06:41)
[2020-12-05] MEDS: Metoprolol Tartrate 50 MG Tablet PO ×2 (06:41→17:04)
[2020-12-05] MEDS: Ramipril 5 MG Capsule PO (06:41)
[2020-12-05] MEDS: Ondansetron ODT 4 MG Tablet 8 MG PO ×3 (06:42→21:12)
[2020-12-05] MEDS: APIXABAN 5 MG TABLET PO ×2 (06:42→17:05)
[2020-12-05] MEDS: Levothyroxine 75 MCG Tablet PO (06:43)
[2020-12-05] MEDS: dexAMETHasone 4 MG/ML Vial IV (06:44)
[2020-12-05] MEDS: Amox/Clavulanate 500 MG Tablet PO ×2 (08:06→21:12)
--- NOTE | 2020-12-05 10:49 | CASEMGMT ---
Social Work BIMS and PHQ-9 completed for MDS assessment. Kerrie Rodriguez, LIGHTNING ROD ERECTOR FORMAL WAITER/WAITRESS
--- NOTE | 2020-12-05 11:56 | NURSING ---
Assisted to bathroom then to chair. Francoise, FRENCH EDGE OPERATOR in room and talks with resident. She will leave orders as they are and maybe decrease medications at a later time. Resident states she feels less nauseous but no appetite. She does take bites of fish and drinks some milk and requests [employer] chicken noodles soup. She states she is generally a picky eater.
[2020-12-05] MEDS: 0.9% Normal Saline 1,000 ML 60 ML IV (13:16)
--- NOTE | 2020-12-05 14:00 | MDS.RN ---
Completed pain interview for LUIS 12/07/20
[2020-12-05 14:37] VITALS: BP 131/57; PULSE 77; RESP 17; TEMP 36.6; O2SAT 95
[2020-12-05] MEDS: Glycerin/Hypromellose/PEG400 15 ml Bottle 1 DRP EACH EYE (14:40)
[2020-12-05 17:04] VITALS: PULSE 80
[2020-12-06] MEDS: 0.9% Saline Lock 10 ML Syringe IV ×3 (00:11→17:36)
[2020-12-06] MEDS: Metoclopramide 10 MG/2 ML Vial IV ×4 (00:11→17:36)
[2020-12-06 06:00] VITALS: PULSE 80; RESP 16; TEMP 36.8; O2SAT 96
[2020-12-06] MEDS: 0.9% Normal Saline 1,000 ML 60 ML IV (06:22)
[2020-12-06] MEDS: Ondansetron ODT 4 MG Tablet 8 MG PO ×3 (06:23→20:55)
[2020-12-06] MEDS: Levothyroxine 75 MCG Tablet PO (06:24)
[2020-12-06] MEDS: amLODIPine 10 MG Tablet PO (06:24)
[2020-12-06] MEDS: Ramipril 5 MG Capsule PO (06:24)
[2020-12-06] MEDS: Venlafaxine XR 37.5 MG Capsule PO (06:24)
[2020-12-06 06:25] VITALS: BP 151/76; PULSE 80
[2020-12-06] MEDS: Metoprolol Tartrate 50 MG Tablet PO ×2 (06:25→17:36)
[2020-12-06] MEDS: APIXABAN 5 MG TABLET PO ×2 (06:25→17:36)
[2020-12-06] MEDS: dexAMETHasone 4 MG/ML Vial IV (06:30)
[2020-12-06] MEDS: Amox/Clavulanate 500 MG Tablet PO ×2 (08:47→19:45)
[2020-12-06 13:31] VITALS: BP 145/69; PULSE 79; RESP 16; TEMP 36.5; O2SAT 96
[2020-12-06 17:36] VITALS: BP 145/69; PULSE 79
[2020-12-06 19:51] VITALS: PULSE 67; RESP 16; O2SAT 96
[2020-12-07] MEDS: Metoclopramide 10 MG/2 ML Vial IV ×4 (00:02→17:32)
[2020-12-07] MEDS: 0.9% Saline Lock 10 ML Syringe IV ×2 (00:03→06:50)
[2020-12-07] MEDS: 0.9% Normal Saline 1,000 ML 60 ML IV ×2 (02:48→20:54)
[2020-12-07 05:00] VITALS: BP 154/77; PULSE 97; RESP 16; TEMP 37.4; O2SAT 93
[2020-12-07] MEDS: Ramipril 5 MG Capsule PO (06:39)
[2020-12-07 06:40] VITALS: BP 154/77; PULSE 97
[2020-12-07] MEDS: amLODIPine 10 MG Tablet PO (06:40)
[2020-12-07] MEDS: Metoprolol Tartrate 50 MG Tablet PO ×2 (06:40→17:34)
[2020-12-07] MEDS: APIXABAN 5 MG TABLET PO ×2 (06:40→17:33)
[2020-12-07] MEDS: Venlafaxine XR 37.5 MG Capsule PO (06:40)
[2020-12-07] MEDS: Ondansetron ODT 4 MG Tablet 8 MG PO ×3 (06:43→21:01)
[2020-12-07] MEDS: Levothyroxine 75 MCG Tablet PO (06:43)
[2020-12-07] MEDS: dexAMETHasone 4 MG/ML Vial IV (06:52)
[2020-12-07 10:36] VITALS: PULSE 77; RESP 18; O2SAT 91
[2020-12-07 13:12] VITALS: BP 139/55; PULSE 77; RESP 18; TEMP 36.4; O2SAT 91
[2020-12-07 17:34] VITALS: BP 139/55; PULSE 77
--- NOTE | 2020-12-07 18:35 | NURSING ---
This nurse was called to pts room by another nurse. Pts IV site was bleeding. This nurse removed IV and applied pressure to control bleeding and pressure dressing applied. Post IV intact, new IV started in right AC
[2020-12-08] MEDS: 0.9% Saline Lock 10 ML Syringe IV ×2 (00:29→05:33)
[2020-12-08] MEDS: Metoclopramide 10 MG/2 ML Vial IV ×4 (00:29→19:33)
[2020-12-08 05:00] VITALS: BP 154/66; PULSE 71; RESP 16; TEMP 36.8; O2SAT 94
[2020-12-08 05:29] VITALS: BP 154/66; PULSE 71
[2020-12-08] MEDS: Metoprolol Tartrate 50 MG Tablet PO ×2 (05:29→18:23)
[2020-12-08] MEDS: Ramipril 5 MG Capsule PO (05:29)
[2020-12-08] MEDS: Levothyroxine 75 MCG Tablet PO (05:29)
[2020-12-08] MEDS: amLODIPine 10 MG Tablet PO (05:29)
[2020-12-08] MEDS: APIXABAN 5 MG TABLET PO ×2 (05:30→18:23)
[2020-12-08] MEDS: Venlafaxine XR 37.5 MG Capsule PO (05:30)
[2020-12-08] MEDS: Ondansetron ODT 4 MG Tablet 8 MG PO ×3 (05:30→21:28)
[2020-12-08] MEDS: dexAMETHasone 4 MG/ML Vial IV (05:35)
[2020-12-08 05:45] LABS: Absolute Lymphocyte Count 1.68 X10^3/uL (0.83-4.51); Absolute Neutrophil Count 14.4 X10^3/uL (2.0-7.7); Basophil# 0.03 X10^3/uL; Basophil% 0.2 % (0-1); Eosinophil# 0.04 X10^3/uL; Eosinophils% 0.2 % (0-5); Hematocrit 26.8 % (37-47); Hemoglobin 8.1 g/dL (12.0-15.0); Lymphocyte # 1.68 X10^3/ul (0.83-4.51); Lymphocyte % 9.5 % (19-41); Mean Corp Hgb Conc 30.2 g/dL (32-36); Mean Corpuscular Hgb 28.2 pg (27.0-32.0); Mean Corpuscular Volume 93.4 fL (81-99); Monocyte# 1.25 X10^3/uL; Monocyte% 7.1 % (0-10); NRBC Flagged by Analyzer 0.1 % (0-5); Neutrophil # 14.37 X10^3/uL (2.7-7.7); Neutrophil % 81.3 % (47-70); POSITIVE MORPHOLOGY YES; Platelet Count 326 K/mm3 (150-450); RBC Distribution Width CV 21.8 % (11.6-14.6); RBC Distribution Width SD 73.5 fl (35.1-43.9); Red Blood Count 2.87 M/mm3 (4.2-5.4); White Blood Count 17.7 K/mm3 (4.4-11.0)
[2020-12-08 05:58] LABS: Differential Indicated SCAN CRITERIA MET
[2020-12-08 06:00] LABS: Anion Gap 6 (5-15); BUN 21 mg/dL (7-18); BUN/Creat Ratio 25.5 RATIO (10-20); Calcium,Total 8.7 mg/dL (8.5-10.1); Chloride 104 mmol/L (98-107); Creatinine, Serum 0.82 mg/dL (0.55-1.02); EST Glomerular Filtration Rate 71 mL/min (>60); Est Glom Filt Rate - Afr Amer 85 mL/min (>60); Estimated Creatinine Clearance 37.99 ml/min; Glucose 90 mg/dL (74-106); Potassium 3.5 mmol/L (3.5-5.1); Sodium Level 139 mmol/L (136-145)
--- NOTE | 2020-12-08 10:37 | NURSING ---
Resident awake. Reports feeling better and eating better I dont eat the food from the hospital but I have been eating food my [id number]-[id number] brings in to me. States she is ready to go home and that She has people lined up to take care of me at home. I told her I would relay this information on to TORIN Conteh.
[2020-12-08] MEDS: Tuberculin,Purif.prot.deriv. 50 TU/ML Vial 5 ML ID (11:39)
[2020-12-08] MEDS: 0.9% Normal Saline 1,000 ML 60 ML IV (13:39)
[2020-12-08 14:42] VITALS: BP 103/49; PULSE 74; RESP 16; TEMP 36.6; O2SAT 97
--- NOTE | 2020-12-08 18:19 | NURSING ---
S.L comes out. Resident is wanting to go home this weekend. Does not want SL restarted at this time. WIll leave out and address this with Palliative care tomorrow.
[2020-12-08 18:23] VITALS: PULSE 74
[2020-12-08] MEDS: MELATONIN 10 MG TABLET PO (21:27)
[2020-12-09] MEDS: Metoclopramide 10 MG/2 ML Vial IV ×3 (00:38→11:37)
[2020-12-09 05:00] VITALS: BP 159/69; PULSE 77; RESP 18; TEMP 37.1; O2SAT 98
[2020-12-09] MEDS: Polyethylene Glycol 3350 17 GM PACKET PO (06:00)
[2020-12-09 06:45] VITALS: BP 154/69; PULSE 74
[2020-12-09] MEDS: Levothyroxine 75 MCG Tablet PO (06:45)
[2020-12-09] MEDS: dexAMETHasone 4 MG/ML Vial IV (06:45)
[2020-12-09] MEDS: Metoprolol Tartrate 50 MG Tablet PO ×2 (06:45→17:28)
[2020-12-09] MEDS: Ondansetron ODT 4 MG Tablet 8 MG PO (06:45)
[2020-12-09] MEDS: Venlafaxine XR 37.5 MG Capsule PO (06:45)
[2020-12-09] MEDS: APIXABAN 5 MG TABLET PO (06:45)
[2020-12-09] MEDS: Ramipril 5 MG Capsule PO (06:45)
[2020-12-09] MEDS: amLODIPine 10 MG Tablet PO (06:45)
[2020-12-09] MEDS: Senna/Docusate Sodium 1 Tablet 2 TABLET PO (06:45)
--- NOTE | 2020-12-09 08:00 | NURSING ---
pt requesting IV NS to be stopped, DR Lewis notified and new order to DC. IV to RT AC saline locked.
[2020-12-09] MEDS: oxyCODONE 5 MG Tablet PO (08:51)
[2020-12-09] MEDS: 0.9% Saline Lock 10 ML Syringe IV ×3 (11:37→23:35)
--- NOTE | 2020-12-09 12:20 | PN_ITS ---
Subjective Subjective: Patient ports she is feeling much better, less nausea and vomiting. Her IV has been saline locked. Participating in therapy without any increase in nausea. Objective Data Objective Data Vital Signs: Vital Signs Temp Pulse Resp BP Pulse Ox 98.6 F 78 16 157/57 H 94 12/09/20 15:55 12/09/20 17:28 12/09/20 15:55 12/09/20 15:55 12/09/20 15:55 Oxygen Delivery Method Room Air Weight: 59.783 kg Body Mass Index (BMI) 25.7 Intake & Output: Intake and Output for Last 24 Hours 12/07/20 12/08/20 12/09/20 23:59 23:59 23:59 Intake Total 1300 / 1300 4151 / 4151 1480 / 1480 Balance 1300 / 1300 4151 / 4151 1480 / 1480 Lab / Micro Data Result Diagrams: 12/08/20 05:15 12/08/20 05:15 Labs: Laboratory Results - last 24 hr 12/09/20 17:45 PT 16.7 H INR 1.4 Physical Exam Const alert, oriented x3 and no apparent distress General Appearance: cooperative HEENT normocephalic and head/scalp atraumatic Neck supple Resp normal respiratory effort Auscultation: diminished lung sounds Cardio S1 normal heart sound and S2 normal heart sound GI normal to inspection, nondistended, normoactive bowel sounds, soft to palpation and non-tender Extremity no clubbing, cyanosis or edema Psych affect normal Appearance: appropriate Assessment & Plan Assessment/Plan (1) Debility: Status: Acute Code(s): R53.81 - Other malaise (2) Abdominal pain: Status: Acute Code(s): R10.9 - Unspecified abdominal pain Qualifiers: Abdominal location: generalized Qualified Code(s): R10.84 - Generalized abdominal pain (3) Pancreatic cancer: Status: Acute Code(s): C25.9 - Malignant neoplasm of pancreas, unspecified (4) Breast cancer: Status: Chronic Code(s): C50.919 - Malignant neoplasm of unspecified site of unspecified female breast Qualifiers: Breast location: unspecified site of breast Estrogen receptor status: unspecified Laterality: unspecified laterality Patient sex: female Qualified Code(s): C50.919 - Malignant neoplasm of unspecified site of unspecified female breast (5) Pulmonary hypertension: Status: Chronic Code(s): I27.20 - Pulmonary hypertension, unspecified (6) Atrial fibrillation with rapid ventricular response: Status: Acute Code(s): I48.91 - Unspecified atrial fibrillation Plan: 80-year-old female seen today for palliative care f/u with nausea and vomiting, debility, and new diagnosis of pancreatic cancer. 1. Nausea and vomiting in setting of pancreatic CA: continues to improve. Able to do therapy and have some PO intake without increased n/v Recommendations: -d/c normal saline -decrease Reglan to 5 mg IV every 6h, ok to change to PO tomorrow if still doing ok, would decrease to 5mg BID -change dexamethasone 4 mg from IV to PO, typically has good success with persistent nausea when given in conjunction w/ other antiemetics. Plan to d/c dexa after 2-3 weeks of therapy. -change Zofran 8 mg every 8 hours to PRN only -PRN phenergan 12.5mg q8h if refractory to other meds 2. Abdominal pain: improved. c/w above plan 3. CKD/hypothyroidism/depression anxiety/HTN/HLD/pulmonary hypertension/new onset atrial fibrillation/CAD/OA: Complicates overall care and management. Patient will continue to follow-up with her specialists and PCP, as well as oncology when she is out of rehab so she can weigh her options for plan of care moving forward with her cancer diagnosis. Call me with any questions or concerns. [phone] Thank you for the opportunity to participate in this patient's care, please do not hesitate to contact [facility] with any further questions or con cerns. Palliative direct line is [phone]. We will have RN follow up approximately 3 days after discharge to home and will discuss palliative services further at that time.
--- NOTE | 2020-12-09 12:21 | NURSING ---
GINI LIPSCOMB, AIRBORNE ELECTRONICS ANALYST IN TO EVALUATE R'. GAVE VERBAL ORDERS TO CHANGE DEXAMETHASONE TO PO, ZOFRAN TO PRN, AND REDUCE REGLAN TO 5MG IV. STATES SHE MAY CHANGE REGLAN TO PO TOMORROW AND WILL START TO WEAN OFF DEXAMETHASONE IN THE NEXT COUPLE DAYS.
--- NOTE | 2020-12-09 12:59 | CASEMGMT ---
Social Work Spoke with pt about DC plans. Pt and IDT agreeable for DC 12/14. Family is coming to stay with her for a month starting 12/13. Pt is medically stable. Pt requesting [facility]. Provided [facility] list of providers including quality and resource use data and consistent with the patient?s preferred geographic region, medical needs, and insurance network. Pt agreeable to [facility], [facility]. Referral made for PT/OT/SN. Pt remains agreeable to Palliative. Notified [facility]. Pt requesting [facility]. [place] [facility] pt. Plan: DC home alone with family support 12/14, [facility] PT/OT/SN, FWW. Kerrie Rodriguez, CREDIT AUTHORIZER CONCIERGE MANAGER
--- NOTE | 2020-12-09 13:07 | NURSING ---
Addendum entered by Lakshmi Arenas 12/09/20 17:26: R' UPDATED ON NEW ORDER FOR WARFARIN. Addendum entered by Lakshmi Arenas 12/09/20 17:09: ELIQUIS D/C'D. WARFARIN STARTED. Original Note: R' CONCERNED ABOUT NOT BEING ABLE TO AFFORD ELIQUIS ONCE DISCHARGED. SPOKE WITH JEREMIE, SUTURE WINDER HAND WHO STATED IT WOULD COST $500/MONTH WITH HER INSURANCE. WILL NOTIFY DR NEWELL.
--- NOTE | 2020-12-09 14:48 | MDS.RN ---
Information for the mds was obtained from review of the clinical record, interview of resident, staff, and direct observation of resident's care.
[2020-12-09 15:55] VITALS: BP 157/57; PULSE 78; RESP 16; TEMP 37; O2SAT 94
[2020-12-09 17:28] VITALS: PULSE 78
[2020-12-09] MEDS: Metoclopramide 10 MG/2 ML Vial 5 MG IV ×2 (17:28→23:35)
[2020-12-09 18:20] LABS: International Normalized Ratio 1.4; Prothrombin Time (Protime)PT. 16.7 SECONDS (11.7-14.9)
[2020-12-09] MEDS: MELATONIN 10 MG TABLET PO (21:22)
--- NOTE | 2020-12-09 21:37 | DS.PCM_ITS ---
Providers Date of Admission: 11/30/20 Primary Care Physician: Jf Lewis, SCHOOL RESOURCE OFFICER-C Reason For Visit: PANCREATIC MASS Diagnosis Discharge Diagnosis (1) Debility: Status: Acute Code(s): R53.81 - Other malaise (2) Abdominal pain: Status: Acute Code(s): R10.9 - Unspecified abdominal pain Qualifiers: Abdominal location: generalized Qualified Code(s): R10.84 - Generalized abdominal pain (3) Pancreatic cancer: Status: Acute Code(s): C25.9 - Malignant neoplasm of pancreas, unspecified (4) Breast cancer: Status: Chronic Code(s): C50.919 - Malignant neoplasm of unspecified site of unspecified female breast Qualifiers: Breast location: unspecified site of breast Estrogen receptor status: unspecified Patient sex: female Laterality: unspecified laterality Qualified Code(s): C50.919 - Malignant neoplasm of unspecified site of unspecified female breast (5) Pulmonary hypertension: Status: Chronic Code(s): I27.20 - Pulmonary hypertension, unspecified (6) Atrial fibrillation with rapid ventricular response: Status: Acute Code(s): I48.91 - Unspecified atrial fibrillation Medications at Discharge Home Medications levothyroxine [Levoxyl] 75 mcg PO DAILY 11/09/13 venlafaxine 37.5 mg PO DAILY 11/09/13 ergocalciferol (vitamin D2) 1 tablet PO QMONTH 11/05/20 amlodipine 10 mg PO DAILY 11/30/20 metoprolol tartrate 50 mg PO BID 11/30/20 peg [id number] 1 drp EACH EYE Q2H PRN 11/30/20 polyethylene glycol 3350 17 gm PO DAILY PRN 11/30/20 ramipril 5 mg PO DAILY 11/30/20 ondansetron 8 mg PO Q8H PRN PRN 30 Days #90 tab 12/09/20 oxycodone 5 mg PO Q6H PRN PRN 7 Days #42 tab 12/09/20 warfarin [Jantoven] 3 mg PO DAILY@1700 30 Days #30 tab 12/09/20 Hospital Course Operations None Procedures None Summary of Care Provided Minutes Spent on Discharge: 35 Hospital Course: 80 year old female with below past medical hospitalized for nausea, vomiting, jaundice secondary to pancreatic mass,biopsy showed adenocarcinoma,? patient considering treatment, admitted to TCU with debility, here for rehabilitation, strengthening, prior to discharge home alone with hospice. Discharge home alone, [facility] PT/OT/SN, Walker. ABG / Lab / Microbiology Data Result Diagrams: 12/08/20 05:15 12/08/20 05:15 Laboratory: Laboratory Results - last 24 hr 12/09/20 17:45 PT 16.7 H INR 1.4 D/C Instructions Please Follow Up With: Beau Holland (general surgery) Meaningful Use Info Meaningful Use Diagnoses (Choose all that apply): None applicable Discharge Plan Admission Admit Date/Time: 11/30/20 13:10 Primary Reason for Your Visit: Debility Attending Provider: Clive Lewis Chi Primary Care Provider: Jf Lewis SCHOOL RESOURCE OFFICER Instructions Additional Instructions / Restrictions: Discharge home alone, [facility] PT/OT/SN, Walker. Discharge Orders/Prescriptions Prescriptions: New warfarin [Jantoven] 3 mg Tablet 3 mg PO DAILY@1700 30 Days Qty: 30 RF: 0 ondansetron 4 mg Tablet,Disintegrating 8 mg PO Q8H PRN PRN (Reason: NAUSEA) 30 Days Qty: 90 RF: 0 Continued venlafaxine 37.5 MG capsule 37.5 mg PO DAILY RF: 0 levothyroxine [Levoxyl] 25 MCG tablet 75 mcg PO DAILY RF: 0 ergocalciferol (vitamin D2) 50,000 UNIT capsule 1 tablet PO QMONTH RF: 0 polyethylene glycol 3350 17 GM packet 17 gm PO DAILY PRN (Reason: Constipation) RF: 0 peg [id number] 1 DRP bottle 1 drp EACH EYE Q2H PRN (Reason: Dry Eyes) RF: 0 amlodipine 10 MG tablet 10 mg PO DAILY RF: 0 metoprolol tartrate 50 MG tablet 50 mg PO BID RF: 0 ramipril 10 MG capsule 5 mg PO DAILY RF: 0 oxycodone 5 MG tablet 5 mg PO Q6H PRN PRN (Reason: Pain Score 6-10) 7 Days Qty: 42 RF: 0 Discontinued calcium carbonate [Caltrate 600] 600 MG tablet 1,500 mg PO DAILY@0800 RF: 0 ondansetron HCl 4 MG tablet 4 mg PO TID PRN (Reason: Nausea/Vomiting) RF: 0 amoxicillin-pot clavulanate 1 EACH tablet 1 each PO Q12H PRN PRN (Reason: antibiotic) RF: 0 Lidocaine 1 EACH Adh..Patch 1 each TOPICAL DAILY RF: 0 apixaban 5 MG tablet 5 mg PO BID RF: 0 Referrals: Jf Lewis SCHOOL RESOURCE OFFICER, SCHOOL RESOURCE OFFICER-C [Primary Care Provider] -
[2020-12-10] MEDS: oxyCODONE 5 MG Tablet PO ×2 (01:02→19:46)
[2020-12-10] MEDS: Senna/Docusate Sodium 1 Tablet 2 TABLET PO (05:27)
[2020-12-10] MEDS: dexAMETHasone 4 MG Tablet PO (05:27)
[2020-12-10] MEDS: amLODIPine 10 MG Tablet PO (05:27)
[2020-12-10] MEDS: Levothyroxine 75 MCG Tablet PO (05:27)
[2020-12-10 05:28] VITALS: BP 155/71; PULSE 70; RESP 17; TEMP 36.2; O2SAT 93
[2020-12-10] MEDS: Polyethylene Glycol 3350 17 GM PACKET PO (05:28)
[2020-12-10] MEDS: 0.9% Saline Lock 10 ML Syringe IV ×3 (05:28→17:42)
[2020-12-10] MEDS: Metoclopramide 10 MG/2 ML Vial 5 MG IV ×3 (05:28→17:42)
[2020-12-10] MEDS: Ramipril 5 MG Capsule PO (05:28)
[2020-12-10] MEDS: Venlafaxine XR 37.5 MG Capsule PO (05:28)
[2020-12-10] MEDS: Metoprolol Tartrate 50 MG Tablet PO ×2 (05:28→17:42)
[2020-12-10 05:55] LABS: International Normalized Ratio 1.3; Prothrombin Time (Protime)PT. 15.4 SECONDS (11.7-14.9)
[2020-12-10 10:00] VITALS: PULSE 74; RESP 16; O2SAT 97
[2020-12-10 13:35] VITALS: BP 138/45; PULSE 74; RESP 16; TEMP 36.9; O2SAT 95
[2020-12-10 17:42] VITALS: BP 145/52; PULSE 68
[2020-12-10] MEDS: MELATONIN 10 MG TABLET PO (19:47)
[2020-12-11] MEDS: Metoclopramide 10 MG/2 ML Vial 5 MG IV ×2 (00:29→06:09)
[2020-12-11] MEDS: 0.9% Saline Lock 10 ML Syringe IV (00:30)
[2020-12-11 05:45] LABS: International Normalized Ratio 1.7
[2020-12-11 05:55] VITALS: BP 183/63; PULSE 62; RESP 18; TEMP 36.7; O2SAT 94
[2020-12-11] MEDS: Ramipril 5 MG Capsule PO (05:59)
[2020-12-11] MEDS: Venlafaxine XR 37.5 MG Capsule PO (05:59)
[2020-12-11 06:00] VITALS: BP 183/63; PULSE 62
[2020-12-11] MEDS: Metoprolol Tartrate 50 MG Tablet PO ×2 (06:00→17:22)
[2020-12-11] MEDS: amLODIPine 10 MG Tablet PO (06:00)
[2020-12-11] MEDS: Levothyroxine 75 MCG Tablet PO (06:00)
[2020-12-11] MEDS: Senna/Docusate Sodium 1 Tablet 2 TABLET PO (06:00)
[2020-12-11] MEDS: dexAMETHasone 4 MG Tablet PO (07:59)
[2020-12-11] MEDS: oxyCODONE 5 MG Tablet PO ×2 (08:25→21:17)
--- NOTE | 2020-12-11 09:16 | NURSING ---
IV found in trash by housekeeping, pt reports it fell out. pt has had multiple IV's fall out. Notified Dr. Lewis, received order to change Reglan to PO. Will add order.
[2020-12-11 10:00] VITALS: PULSE 63; RESP 18; O2SAT 96
[2020-12-11] MEDS: Metoclopramide 5 MG TABLET PO (11:56)
[2020-12-11 15:31] VITALS: BP 116/78; PULSE 69; RESP 18; TEMP 36.3; O2SAT 99
--- NOTE | 2020-12-11 17:06 | PCM.PROGNOTE ---
Subjective Subjective: Feeling better, no nausea or vomiting. Able to tolerate p.o. intake but very little, does not eat much at baseline. Objective Data Objective Data Vital Signs: Vital Signs Temp Pulse Resp BP Pulse Ox 97.3 F L 69 18 116/78 99 12/11/20 15:31 12/11/20 15:31 12/11/20 15:31 12/11/20 15:31 12/11/20 15:31 Oxygen Delivery Method Room Air Weight: 59.783 kg Body Mass Index (BMI) 25.7 Intake & Output: Intake and Output for Last 24 Hours 12/09/20 12/10/20 12/11/20 23:59 23:59 23:59 Intake Total 1600 / 1600 300 / 300 240 / 240 Balance 1600 / 1600 300 / 300 240 / 240 Lab / Micro Data Result Diagrams: 12/08/20 05:15 12/08/20 05:15 Labs: Laboratory Results - last 24 hr 12/11/20 05:20 PT 19.0 H INR 1.7 Physical Exam Const alert, oriented x3 and no apparent distress General Appearance: cooperative Resp normal respiratory effort Auscultation: diminished lung sounds Cardio S1 normal heart sound and S2 normal heart sound GI normal to inspection, nondistended, normoactive bowel sounds, soft to palpation and non-tender Psych affect normal Appearance: appropriate Assessment & Plan Assessment/Plan (1) Debility: Status: Acute Code(s): R53.81 - Other malaise (2) Abdominal pain: Status: Acute Code(s): R10.9 - Unspecified abdominal pain Qualifiers: Abdominal location: generalized Qualified Code(s): R10.84 - Generalized abdominal pain (3) Pancreatic cancer: Status: Acute Code(s): C25.9 - Malignant neoplasm of pancreas, unspecified (4) Breast cancer: Status: Chronic Code(s): C50.919 - Malignant neoplasm of unspecified site of unspecified female breast Qualifiers: Breast location: unspecified site of breast Estrogen receptor status: unspecified Patient sex: female Laterality: unspecified laterality Qualified Code(s): C50.919 - Malignant neoplasm of unspecified site of unspecified female breast (5) Pulmonary hypertension: Status: Chronic Code(s): I27.20 - Pulmonary hypertension, unspecified (6) Atrial fibrillation with rapid ventricular response: Status: Acute Code(s): I48.91 - Unspecified atrial fibrillation Plan: 80-year-old female seen today for palliative care f/u with nausea and vomiting, debility, and new diagnosis of pancreatic cancer. 1. Nausea and vomiting in setting of pancreatic CA: continues to improve. Able to do therapy and have some PO intake without increased n/v Recommendations: -decrease Reglan to 5mg PO qAC and qHS prn nausea. -change dexamethasone 4 mg PO x1 week, then decrease to 2mg PO x1 week, then d/c if no persistent nausea -Zofran 8 mg every 8 hours PRN -phenergan 12.5mg q8h PRN if refractory to other meds 2. Abdominal pain: improved. c/w above plan 3. CKD/hypothyroidism/depression anxiety/HTN/HLD/pulmonary hypertension/new onset atrial fibrillation/CAD/OA: Complicates overall care and management. Patient will continue to follow-up with her specialists and PCP, as well as oncology when she is out of rehab so she can weigh her options for plan of care moving forward with her cancer diagnosis. Call me with any questions or concerns. [phone] Thank you for the opportunity to participate in this patient's care, please do not hesitate to contact [facility] with any further questions or concerns. Palliative direct line is [phone]. We will have RN follow up approximately 3 days after discharge to home and will discuss palliative services further at that time.
[2020-12-11 17:22] VITALS: BP 116/78; PULSE 69
[2020-12-11] MEDS: MELATONIN 10 MG TABLET PO (21:15)
[2020-12-12 04:59] VITALS: BP 149/46; PULSE 62; RESP 16; TEMP 37.3; O2SAT 96
[2020-12-12 05:02] VITALS: BP 149/46; PULSE 62
[2020-12-12] MEDS: Metoprolol Tartrate 50 MG Tablet PO ×2 (05:02→17:42)
[2020-12-12] MEDS: Senna/Docusate Sodium 1 Tablet 2 TABLET PO ×2 (05:02→17:42)
[2020-12-12] MEDS: Ramipril 5 MG Capsule PO (05:02)
[2020-12-12] MEDS: Levothyroxine 75 MCG Tablet PO (05:02)
[2020-12-12] MEDS: amLODIPine 10 MG Tablet PO (05:02)
[2020-12-12] MEDS: Venlafaxine XR 37.5 MG Capsule PO (05:03)
[2020-12-12 05:08] VITALS: BP 112/73; PULSE 78; RESP 16; TEMP 36.4; O2SAT 94
[2020-12-12 05:57] LABS: International Normalized Ratio 2.3; Prothrombin Time (Protime)PT. 24.5 SECONDS (11.7-14.9)
[2020-12-12] MEDS: dexAMETHasone 4 MG Tablet PO (07:58)
--- NOTE | 2020-12-12 09:56 | CASEMGMT ---
Social Work BIMS and PHQ-9 completed for MDS assessment. Kerrie Rodriguez, LIMITED RADIOLOGY TECHNICIAN TURRET PRESS OPERATOR
[2020-12-12 16:05] VITALS: BP 117/58; PULSE 60; RESP 16; TEMP 36.7; O2SAT 97
[2020-12-12 17:42] VITALS: BP 117/58; PULSE 60
[2020-12-12 19:30] VITALS: BP 145/49; PULSE 68; RESP 16; TEMP 36.6; O2SAT 97
[2020-12-12] MEDS: oxyCODONE 5 MG Tablet PO (19:32)
[2020-12-12] MEDS: MELATONIN 10 MG TABLET PO (19:32)
[2020-12-13 06:09] VITALS: BP 106/37; PULSE 62
[2020-12-13] MEDS: Levothyroxine 75 MCG Tablet PO (06:09)
[2020-12-13] MEDS: Venlafaxine XR 37.5 MG Capsule PO (06:09)
[2020-12-13] MEDS: amLODIPine 10 MG Tablet PO (06:09)
[2020-12-13] MEDS: Metoprolol Tartrate 50 MG Tablet PO ×2 (06:09→17:52)
[2020-12-13] MEDS: Ramipril 5 MG Capsule PO (06:09)
[2020-12-13] MEDS: Senna/Docusate Sodium 1 Tablet 2 TABLET PO (06:10)
[2020-12-13 06:13] VITALS: BP 106/37; PULSE 62; RESP 16; TEMP 37; O2SAT 98
[2020-12-13] MEDS: dexAMETHasone 4 MG Tablet PO (07:55)
[2020-12-13 08:15] LABS: International Normalized Ratio 3.3; Prothrombin Time (Protime)PT. 32.7 SECONDS (11.7-14.9)
[2020-12-13 10:41] VITALS: PULSE 70; RESP 16; O2SAT 98
[2020-12-13 15:00] VITALS: BP 156/74; PULSE 73; RESP 18; TEMP 36.8; O2SAT 98
[2020-12-13 17:52] VITALS: BP 156/74; PULSE 73
[2020-12-13] MEDS: oxyCODONE 5 MG Tablet PO (20:07)
[2020-12-13] MEDS: MELATONIN 10 MG TABLET PO (20:08)
[2020-12-14 04:47] VITALS: BP 152/55; PULSE 63; RESP 16; TEMP 36.3; O2SAT 95
[2020-12-14] MEDS: Ramipril 5 MG Capsule PO (04:54)
[2020-12-14] MEDS: Venlafaxine XR 37.5 MG Capsule PO (04:54)
[2020-12-14 04:55] VITALS: BP 152/55; PULSE 63
[2020-12-14] MEDS: amLODIPine 10 MG Tablet PO (04:55)
[2020-12-14] MEDS: Levothyroxine 75 MCG Tablet PO (04:55)
[2020-12-14] MEDS: Metoprolol Tartrate 50 MG Tablet PO (04:55)
[2020-12-14 04:59] LABS: International Normalized Ratio 3.7; Prothrombin Time (Protime)PT. 35.5 SECONDS (11.7-14.9)
[2020-12-14] MEDS: dexAMETHasone 4 MG Tablet PO (07:57)
[2020-12-14 09:44] VITALS: BP 152/55; PULSE 64; RESP 16; TEMP 36.3; O2SAT 99
[2020-12-14 10:00] VITALS: PULSE 64; RESP 16; O2SAT 99
== END 2020-12-14 09:50 | disposition home health service (06) | DRG 436 ==
PROVIDERS: Admitting Provider Family Medicine Geriatric Medicine; PCP Nurse Practitioner Family; Visit Provider Family Medicine Geriatric Medicine
DX: C25.9 Malignant neoplasm of pancreas, unspecified (principal); K83.09 Other cholangitis; N18.9 Chronic kidney disease, unspecified; I12.9 Hypertensive chronic kidney disease with stage 1 through stage 4 chronic kidney disease, or unspecified chronic kidney disease; M19.90 Unspecified osteoarthritis, unspecified site; E03.9 Hypothyroidism, unspecified; F32.9 Major depressive disorder, single episode, unspecified; I48.91 Unspecified atrial fibrillation; I25.10 Atherosclerotic heart disease of native coronary artery without angina pectoris; E78.5 Hyperlipidemia, unspecified; I27.21 Secondary pulmonary arterial hypertension; K44.9 Diaphragmatic hernia without obstruction or gangrene; E55.9 Vitamin D deficiency, unspecified; Z79.899 Other long term (current) drug therapy; Z79.01 Long term (current) use of anticoagulants; Z66 Do not resuscitate; F41.8 Other specified anxiety disorders; Z85.3 Personal history of malignant neoplasm of breast
CPT/HCPCS: 36415; 80048; 85025; 85610; 87635; 97110; 97116; 97162; 97166; 97530; 97535; J7030; A4216; U0002

== ENCOUNTER 2021-01-26 09:39 | Emergency (ER) | payer MEDICARE, OTHER, SELFPAY ==
[2021-01-22 15:56] VITALS: BMI 24.4
[2021-01-26 09:40] VITALS: BP 115/87; PULSE 82; RESP 18; TEMP 37.1; O2SAT 98; BMI 24.3
--- NOTE | 2021-01-26 10:15 | EKG12_ITS ---
Test Reason : FALL Blood Pressure : / mmHG Vent. Rate : 082 BPM Atrial Rate : 082 BPM P-R Int : 112 ms QRS Dur : 098 ms QT Int : 390 ms P-R-T Axes : 001 016 123 degrees QTc Int : 455 ms Normal sinus rhythm Nonspecific T wave abnormality Abnormal ECG Confirmed by AMITA MONTES, TATYANA ([id number]), website/blog editor ELENA ONEIL ([id number]) on 01/29/2021 9:52:17 AM Referred By: Confirmed By:TATYANA LEVI MD
--- NOTE | 2021-01-26 10:15 | CT_ITS ---
STUDY: CT BRAIN WITHOUT CONTRAST REASON FOR EXAM: Female, 80 years old. Right for head laceration secondary to syncopal episode. RADIATION DOSAGE (If Supplied By Facility): CTDIvol = ( 44.99 ) mGy, DLP = ( 745.49 ) mGycm TECHNIQUE: Transaxial CT imaging of the brain was performed without administration of intravenous contrast material. Individualized dose optimization techniques were used for this CT. COMPARISON: No relevant priors. FINDINGS: Normal soft tissue structures. Normal calvarium. There is mild cerebral atrophy with widening of the extra-axial spaces and ventricular dilatation. There are areas of decreased attenuation within the white matter tracts of the supratentorial brain, consistent with microvascular disease changes. Normal basal ganglia and thalami. Normal brainstem. Normal cerebellum. There is no intracranial hemorrhage. There are no findings of an acute ischemic infarction. Normal visualized paranasal sinuses. CT/Brain/Head without Contrast IMPRESSION: Chronic involutional changes of the brain. Electronically Signed: Dinh Bush MD at 11:09 EDT , Service support ,
[2021-01-26 10:53] LABS: Absolute Lymphocyte Count 1.69 X10^3/uL (0.83-4.51); Absolute Neutrophil Count 8.8 X10^3/uL (2.0-7.7); Basophil# 0.07 X10^3/uL; Basophil% 0.6 % (0-1); Eosinophil# 0.42 X10^3/uL; Eosinophils% 3.3 % (0-5); Hematocrit 30.5 % (37-47); Hemoglobin 9.6 g/dL (12.0-15.0); Lymphocyte # 1.69 X10^3/ul (0.83-4.51); Lymphocyte % 13.3 % (19-41); Mean Corp Hgb Conc 31.5 g/dL (32-36); Mean Corpuscular Hgb 27.4 pg (27.0-32.0); Mean Corpuscular Volume 86.9 fL (81-99); Mean Platelet Vol. 11.3 fl (6.2-12.0); Monocyte# 1.63 X10^3/uL; Monocyte% 12.8 % (0-10); NRBC Flagged by Analyzer 0 % (0-5); Neutrophil # 8.82 X10^3/uL (2.7-7.7); Neutrophil % 69.4 % (47-70); POSITIVE DIFFERENTIAL YES; Platelet Count 376 K/mm3 (150-450); RBC Distribution Width SD 44.2 fl (35.1-43.9); Red Blood Count 3.51 M/mm3 (4.2-5.4); White Blood Count 12.7 K/mm3 (4.4-11.0)
[2021-01-26 10:57] LABS: Differential Indicated SCAN CRITERIA MET
[2021-01-26 11:06] LABS: ALB/GLOB Ratio 0.5 RATIO (0.9-2.4); AST(SGOT) 48 U/L (15-37); Alanine Aminotransfer ALT/SGPT 33 U/L (13-56); Albumin, Serum 2.4 g/dL (3.2-5.0); Alkaline Phosphatase 354 U/L (45-117); Anion Gap 7 (5-15); BUN 17 mg/dL (7-18); BUN/Creat Ratio 16.5 RATIO (10-20); Calcium,Total 9.4 mg/dL (8.5-10.1); Chloride 97 mmol/L (98-107); Creatinine, Serum 1.03 mg/dL (0.55-1.02); EST Glomerular Filtration Rate 55 mL/min (>60); Est Glom Filt Rate - Afr Amer 66 mL/min (>60); Estimated Creatinine Clearance 30.25 ml/min; Globulin 4.5 g/dL (2.2-4.2); Glucose 133 mg/dL (74-106); Potassium 3.1 mmol/L (3.5-5.1); Protein, Total 6.9 g/dL (6.4-8.2); Sodium Level 137 mmol/L (136-145)
[2021-01-26 11:21] LABS: Differential Comment SCANNED
[2021-01-26 11:53] VITALS: BP 121/92; PULSE 83; RESP 23; O2SAT 95
[2021-01-26] MEDS: Potassium Chloride Oral Tablet 20 MEQ 40 MEQ PO (11:56)
[2021-01-26 12:46] LABS: Mucous, Urine 0 SEEN /hpf (<or=2+); Red Blood Cells-Urine 0 SEEN /hpf (0-5)
[2021-01-26 12:50] LABS: Color, Urine Yellow (Yellow); Glucose, Dipstick Normal (Normal); Ketone-Dipstick Negative (Negative); Leukocyte Esterase-Dipstick 25 /ul (Negative); Nitrite-Dipstick Negative (Negative); Occult Blood-Urine Negative /ul (Negative); Protein-Dipstick 15 mg/dl (Negative); Specific Gravity, Urine 1.015 (1.002-1.030); Urine Bilirubin Dipstick Negative (Negative); Urine Clarity Clear (Clear); Urine Urobilinogen 1 mg/dl (Normal)
[2021-01-26 12:57] LABS: Bacteria RARE /hpf (None Seen); Squamous Epithelial Cells - UA 0-5 SEEN /hpf (5-10); White Blood Cells 0-5 SEEN /hpf (0-5)
--- NOTE | 2021-01-26 13:11 | EDS_ITS ---
HPI HPI - Fall History of Present Illness Chief Complaint: Fall Informant: patient Occured/Mechanism Occurred: Today Mechanism/Context: Yes same level fall Pain/Injury Pain Location: head Quality of Pain: Dull Current Severity: Mild Worsened by: Nothing Relieved by: Nothing Associated Symptoms Associated Symptoms: Negative for Parasthesias and Weakness Narrative Narrative: Patient presents after a fall that occurred today. Patient states she felt lightheaded and thinks she may have passed out. Patient thinks she hit her head on her nightstand. Patient states she has some dull pain in her right frontal area. Patient states it is mild. Patient denies any difficulty walking after the fall. Patient states her last tetanus was between 5 and 10 years ago. Patient denies any paresthesias or weakness. Patient denies any fevers or chills. PFSH [facility] Medical History Atrial fibrillation with rapid ventricular response (11/05/20) Essential (primary) hypertension Hyperlipidemia Hypothyroidism Non-rheumatic tricuspid valve insufficiency Nonrheumatic mitral (valve) insufficiency Pancreatic cancer Secondary pulmonary arterial hypertension Home Medications levothyroxine [Levoxyl] 75 mcg PO DAILY 11/09/13 [History Last Taken Unknown] venlafaxine 37.5 mg PO DAILY 11/09/13 [History Last Taken Unknown] ergocalciferol (vitamin D2) 1 tablet PO QMONTH 11/05/20 [History Last Taken Unknown] amlodipine 10 mg PO DAILY 11/30/20 [History Last Taken Unknown] metoprolol tartrate 50 mg PO BID 11/30/20 [History Last Taken Unknown] peg [id number] 1 drp EACH EYE Q2H PRN 11/30/20 [History Last Taken Unknown] polyethylene glycol 3350 17 gm PO DAILY PRN 11/30/20 [History Last Taken Unknown] ramipril 5 mg PO DAILY 11/30/20 [History Last Taken Unknown] ondansetron 8 mg PO Q8H PRN PRN 30 Days #90 tab 12/09/20 [Rx Last Taken Unknown] oxycodone 5 mg PO Q6H PRN PRN 7 Days #42 tab 12/09/20 [Rx Last Taken Unknown] warfarin [Jantoven] 3 mg PO DAILY@1700 30 Days #30 tab 12/09/20 [Rx Last Taken Unknown] oxycodone 5 mg PO Q6H PRN PRN 7 Days #28 tab 12/14/20 [Rx Last Taken Unknown] fentanyl 12 mcg/hr transdermal patch 1 patch TRANSDERMAL Q72H 30 Days #10 ea 01/22/21 [Rx Last Taken Unknown] Allergy/AdvReac Type Severity Reaction Status Date / Time ezetimibe [From Zetia] Allergy Rash Verified 01/22/21 15:55 Surgical History History of bilateral mastectomy History of left heart catheterization (11/06/20) Social History Smoking Status: Never smoker ROS ROS ED Constitutional Constitutional ED: Denies chills or fever(s) Eyes Eyes: Denies blurry vision or change in vision ENT ENT ED: Denies rhinorrhea or sore throat Cardiovascular Cardiovascular: Denies chest pain or palpitations Respiratory/Chest Respiratory/Chest: Denies cough or dyspnea Gastrointestinal Gastrointestinal: Denies nausea or vomiting Genitourinary Genitourinary ED: Denies dysuria or hematuria Musculoskeletal Musculoskeletal: Reports back pain; Denies neck pain Integumentary Denies abscess or rash Neurologic Neurologic: Reports headache(s); Denies weakness Allergic/Immunologic Allergic/Immunologic ED: Denies mouth swelling or urticaria EXAM Physical Exam Const Vital Signs: 01/26/21 09:40 01/26/21 11:53 01/26/21 13:43 Temperature 98.8 F Temperature Source Temporal Pulse Rate 82 83 84 Respiratory Rate 18 23 H 12 Respiratory Effort Normal Non-Labored Respiratory Depth Normal Respiratory Pattern Normal Blood Pressure 115/87 H 121/92 H 132/88 H Blood Pressure Mean 96 101 Pulse Ox 98 95 97 Oxygen Delivery Method Room Air Room Air Positive well nourished and well developed General Appearance ED: well developed HEENT Reports normocephalic and moist mucous membranes HEENT Narrative: There is a 3 cm full-thickness linear laceration over the right forehead and temporal area. There is mild gapping of the wound margins. There is no active bleeding. There is no bony crepitance or step-off. Eyes PERRL and EOMs intact bilaterally Neck supple and no JVD Resp normal respiratory effort and clear to auscultation bilaterally Cardio regular rate, regular rhythm and no murmurs GI normal to inspection, nondistended, normoactive bowel sounds, non-tender and non-distended Palpation: soft Extremity normal to inspection General Extremety ED: Negative for edema or tenderness General Extremity: Negative for edema Neuro oriented x3, CN's II-XII intact bilaterally and no sensory deficits noted Sensorium / Orientation: alert Motor Exam: strength 5/5 throughout Psych mental status grossly normal Skin no rashes or lesions noted MDM MDM MDM Narrative Medical decision making narrative: The right forehead laceration was cleaned and irrigated with copious amounts of normal saline. It was closed with Dermabond skin adhesive. Patient tolerated procedure well. CBC shows a slight leukocytosis of 12.7. Comprehensive metabolic profile showed an elevated alk phos of 354 and a slightly elevated AST of 48. The remaining lab was essentially within normal limits. Urinalysis was obtained. There is no evidence of urinary tract infection. EKG was obtained. On my interpretation, it showed a normal sinus rhythm with a rate of 82. TX interval, QRS interval, and QTc intervals were all normal. [place] was normal. There are nonspecific ST-T wave changes. CT scan of the brain was obtained. There is no acute intracranial abnormality. Patient was advised of her findings. Patient was instructed to follow-up with her primary care physician in 5 to 7 days. Patient was instructed to avoid bacitracin, Neosporin, or any Vaseline-based ointment to the wound. Patient understood and was agreeable with the plan. All questions were answered. Lab Data Attestation: I reviewed the patient's lab results. Labs: Laboratory Results - last 24 hr 01/26/21 01/26/21 01/26/21 10:35 10:35 12:35 WBC 12.7 H RBC 3.51 L Hgb 9.6 L Hct 30.5 L MCV 86.9 MCH 27.4 MCHC 31.5 L RDW Std Deviation 44.2 H RDW Coeff of Courtney 14.0 Plt Count 376 MPV 11.3 Immature Gran % (Auto) 0.600 Neut % (Auto) 69.4 Lymph % (Auto) 13.3 L Ness % (Auto) 12.8 H Eos % (Auto) 3.3 Baso % (Auto) 0.6 Absolute Neuts (auto) 8.8 H Absolute Lymphs (auto) 1.69 Nucleated RBC % 0 Differential Comment SCANNED Diff Path Review December Sodium 137 Potassium 3.1 L Chloride 97 L Carbon Dioxide 33.0 H Anion Gap 7 BUN 17 Creatinine 1.03 H Estim Creat Clear Calc 30.25 Est GFR (MDRD) Af Amer 66 Est GFR (MDRD) Non-Af 55 L BUN/Creatinine Ratio 16.5 Glucose 133 H Calcium 9.4 Total Bilirubin 0.40 AST 48 H ALT 33 Alkaline Phosphatase 354 H Troponin I < 0.015 Total Protein 6.9 Albumin 2.4 L Globulin 4.5 H Albumin/Globulin Ratio 0.5 L Urine Color Yellow Urine Clarity Clear Urine pH 6.0 Ur Specific [place] 1.015 Urine Protein 15 H Urine Glucose (UA) Normal Urine Ketones Negative Urine Occult Blood Negative Urine Nitrite Negative Urine Bilirubin Negative Urine Urobilinogen 1 H Ur Leukocyte Esterase 25 H Urine RBC 0 SEEN Urine WBC 0-5 SEEN Ur Squamous Epith Cells 0-5 SEEN Urine Bacteria RARE Urine Mucus 0 SEEN Radiography Diagnostic Testing: Radiology Impression Brain CT 01/26/21 10:15 IMPRESSION: Chronic involutional changes of the brain. Electronically Signed: Dinh Bush MD at 11:09 EDT , Service support , Procedures Lacerations Forehead: Length: 3 cm Depth: Sub Q Shape: Linear Prep: Sterile Conditions and Chlorhexadine Laceration repair: Irrigated Comment: Wound was closed with Dermabond skin adhesive Discharge Plan Triage Chief Complaint: Fall ED Provider: Davey Sierra Dx/Rx/DC Orders Clinical Impression: Syncope, Forehead laceration Instructions: ED Head Injury (Adult), ED Laceration, Face: Skin Glue, ED Fainting, Uncertain Cause Prescriptions: No Action fentanyl 12 mcg/hr patch 72 hour 1 patch transdermal Q72H 30 Days Qty: 10 RF: 0 venlafaxine 37.5 MG capsule 37.5 mg PO DAILY RF: 0 levothyroxine [Levoxyl] 25 MCG tablet 75 mcg PO DAILY RF: 0 ergocalciferol (vitamin D2) 50,000 UNIT capsule 1 tablet PO QMONTH RF: 0 polyethylene glycol 3350 17 GM packet 17 gm PO DAILY PRN (Reason: Constipation) RF: 0 peg [id number]-[id number] 1 DRP bottle 1 drp EACH EYE Q2H PRN (Reason: Dry Eyes) RF: 0 amlodipine 10 MG tablet 10 mg PO DAILY RF: 0 metoprolol tartrate 50 MG tablet 50 mg PO BID RF: 0 ramipril 10 MG capsule 5 mg PO DAILY RF: 0 warfarin [Jantoven] 3 mg Tablet 3 mg PO DAILY@1700 30 Days Qty: 30 RF: 0 ondansetron 4 mg Tablet,Disintegrating 8 mg PO Q8H PRN PRN (Reason: NAUSEA) 30 Days Qty: 90 RF: 0 oxycodone 5 MG tablet 5 mg PO Q6H PRN PRN (Reason: Pain Score 6-10) 7 Days Qty: 42 RF: 0 oxycodone 5 mg Tablet 5 mg PO Q6H PRN PRN (Reason: Pain Score 6-10) 7 Days Qty: 28 RF: 0 Primary Care Provider: Jf Lewis NP Referrals: Jf Lewis NP, ELECTRONIC COMPONENTS ASSEMBLER-C [Primary Care Provider] - 5-7 Days Disposition Disposition: Home, self care Discharge Date/Time: 01/26/21 13:51
[2021-01-26 13:43] VITALS: BP 132/88; PULSE 84; RESP 12; O2SAT 97
[2021-01-27 12:46] LABS: Pathologist Review Reviewed
== END 2021-01-26 13:51 | disposition home or self-care (01) ==
PROVIDERS: Emergency Provider Emergency Medicine; PCP Nurse Practitioner Family
DX: S01.81XA Laceration without foreign body of other part of head, initial encounter (principal); R55 Syncope and collapse; I48.91 Unspecified atrial fibrillation; I10 Essential (primary) hypertension; E78.5 Hyperlipidemia, unspecified; E03.9 Hypothyroidism, unspecified; Z79.01 Long term (current) use of anticoagulants; Z79.899 Other long term (current) drug therapy; W18.30XA Fall on same level, unspecified, initial encounter; Y93.89 Activity, other specified; Y92.003 Bedroom of unspecified non-institutional (private) residence as the place of occurrence of the external cause; Y99.8 Other external cause status
CPT/HCPCS: 12013; 70450; 80053; 81001; 84484; 85025; 93005; 99285; A4216

== ENCOUNTER 2021-02-08 04:02 | Emergency (ER) | payer MEDICARE, OTHER, SELFPAY ==
[2021-02-05 13:55] VITALS: BMI 24.0
[2021-02-08 04:03] VITALS: BP 146/74; PULSE 118; RESP 16; TEMP 37.2; O2SAT 97; BMI 24.6
--- NOTE | 2021-02-08 04:18 | EKG12_ITS ---
Test Reason : SYNCOPE Blood Pressure : / mmHG Vent. Rate : 099 BPM Atrial Rate : 099 BPM P-R Int : 120 ms QRS Dur : 096 ms QT Int : 364 ms P-R-T Axes : 053 -07 115 degrees QTc Int : 467 ms Sinus rhythm with Premature atrial complexes Nonspecific ST and T wave abnormality Abnormal ECG Confirmed by AMITA MONTES, TATYANA ([id number]), senior editor ELENA ONEIL ([id number]) on 02/10/2021 8:58:43 AM Referred By: BB Confirmed By:TATYANA LEVI MD
--- NOTE | 2021-02-08 04:20 | EX.ED.DYSGE1 ---
HPI History of Present Illness Chief Complaint: Syncope Informant: patient Onset/Context/Timing Onset: Today Context: Gradual Onset Timing: Intermittent (x1) and Lasts (several mins) Quality: passed out Current Severity: Gone Maximum Severity: Severe Worsened by: standing up Relieved by: lying down Associated Symptoms Associated Symptoms: denies Narrative Narrative: Patient states she got up in the middle of the night to urinate, she went to the toilet fine, she urinated and when she got up she felt lightheaded and apparently passed out. Her sister carried her to the kitchen where she woke up. Now she feels better but is afraid to stand up. She has had this happen multiple times when she gets off the toilet but this time it sounds like she actually lost consciousness. In October she was diagnosed with pancreatic cancer and recently was told that it is stage IV and she is not undergoing any treatment for that. She has been lightheaded off-and-on for the past 3 months or so. She denies any shortness of breath, palpitations, chest pain, or headache preceding this episode. She denies any injury. She has an abrasion on her forehead that she states is from a week or 2 ago minor fall. She denies any history of blood clots or pain or swelling in either leg recently. [facility] Medical History Atrial fibrillation with rapid ventricular response (11/05/20) Essential (primary) hypertension Hyperlipidemia Hypothyroidism Non-rheumatic tricuspid valve insufficiency Nonrheumatic mitral (valve) insufficiency Pancreatic cancer Secondary pulmonary arterial hypertension Home Medications levothyroxine [Levoxyl] 75 mcg PO DAILY 11/09/13 [History Last Taken Unknown] venlafaxine 37.5 mg PO DAILY 11/09/13 [History Last Taken Unknown] ergocalciferol (vitamin D2) 1 tablet PO QMONTH 11/05/20 [History Last Taken Unknown] metoprolol tartrate 50 mg PO BID 11/30/20 [History Last Taken Unknown] peg [id number] 1 drp EACH EYE Q2H PRN 11/30/20 [History Last Taken Unknown] polyethylene glycol 3350 17 gm PO DAILY PRN 11/30/20 [History Last Taken Unknown] ondansetron 8 mg PO Q8H PRN PRN 30 Days #90 tab 04/27/21 [Rx Last Taken Unknown] fentanyl 12 mcg/hr transdermal patch 1 patch TRANSDERMAL Q72H 30 Days #10 ea 01/22/21 [Rx Last Taken Unknown] potassium chloride 20 meq PO BID #20 tab 02/08/21 [Rx Last Taken Unknown] Allergy/AdvReac Type Severity Reaction Status Date / Time ezetimibe [From Zetia] Allergy Rash Verified 02/08/21 04:08 Surgical History History of bilateral mastectomy History of left heart catheterization (11/06/20) Social History Smoking Status: Never smoker ROS ROS ED Constitutional Constitutional ED: Denies chills or fever(s) Eyes Eyes: Denies change in vision or diplopia ENT ENT ED: Denies rhinorrhea or sore throat Cardiovascular Cardiovascular: Denies chest pain or palpitations Respiratory/Chest Respiratory/Chest: Denies cough or dyspnea Gastrointestinal Gastrointestinal: Denies abdominal pain, diarrhea, nausea or vomiting Genitourinary Genitourinary ED: Denies dysuria or hematuria Musculoskeletal Musculoskeletal: Denies back pain or neck pain Integumentary Denies abscess or rash Neurologic Neurologic: Denies headache(s), paresthesias or weakness Psychiatric Psychiatric: Denies anxiety or suicidal thoughts EXAM Physical Exam Const Vital Signs: 02/08/21 04:03 02/08/21 04:05 02/08/21 06:10 Temperature 99 F Temperature Source Oral Pulse Rate 118 H 97 Respiratory Rate 16 14 Respiratory Effort Normal Respiratory Pattern Normal Blood Pressure 146/74 H 173/57 H Blood Pressure Mean 98 95 Pulse Ox 97 98 Oxygen Delivery Method Room Air Room Air Positive well nourished and well developed General Appearance ED: well developed and NAD HEENT Reports moist mucous membranes normocephalic and atraumatic Eyes PERRL and EOMs intact bilaterally Neck full ROM and supple Resp normal respiratory effort and clear to auscultation bilaterally Cardio regular rate, regular rhythm and no murmurs Rate: tachycardic GI non-tender and non-distended Auscultation: normoactive bowel sounds Palpation: soft Back/Spine no CVA tenderness General Back: other FROM Extremity normal to inspection General Extremety ED: Negative for edema, pulses abnormal or tenderness General Extremity: Negative for edema or pulses abnormal Neuro oriented x3, CN's II-XII intact bilaterally and no sensory deficits noted Sensorium / Orientation: awake and alert Motor Exam: strength 5/5 throughout Skin no rashes or lesions noted and no wounds MDM MDM MDM Narrative Medical decision making narrative: Patient was given IV fluids and a general work-up was obtained. Of note is her white blood count of 21.9 and potassium of 2.9. Her urine was added and shows no infection. Given her cancer and relatively unexplained syncope and patient saying that she has been staying well-hydrated and drinks a lot of water, I obtain CT angiography of the chest given that she is high risk for pulmonary embolus, it is negative for that and any infiltrates or infection. She has had no fevers and developed none. She was given potassium 10 mEq IV over an hour here in the emergency department. Nurses walked her to and from the bathroom, she did not have any issues, although she states she is a little wobbly without her walker which she usually uses and she does feel a little weak but she basically feels at baseline. She was offered admission but she declines and prefers to go home. I am okay with this, gave her a prescription for potassium for the next week given her renal function is normal, and she is encouraged to return if she starts feeling worse. Follow-up advised as well. Lab Data Attestation: I reviewed the patient's lab results. Labs: Laboratory Results - last 24 hr 02/08/21 02/08/21 02/08/21 04:36 04:36 06:00 WBC 21.9 H RBC 3.84 L Hgb 10.1 L Hct 31.5 L MCV 82.0 MCH 26.3 L MCHC 32.1 RDW Std Deviation 42.6 RDW Coeff of Courtney 14.4 Plt Count 595 H MPV 10.5 Immature Gran % (Auto) 1.100 H Neut % (Auto) 78.2 H Lymph % (Auto) 6.9 L [place] % (Auto) 11.2 H Eos % (Auto) 1.9 Baso % (Auto) 0.7 Absolute Neuts (auto) 17.1 H Absolute Lymphs (auto) 1.51 Nucleated RBC % 0 Diff Path Review May foll Sodium 133 L Potassium 2.9 L Chloride 91 L Carbon Dioxide 32.0 Anion Gap 10 BUN 13 Creatinine 0.96 Estim Creat Clear Calc 32.45 Est GFR (MDRD) Af Amer 71 Est GFR (MDRD) Non-Af 59 L BUN/Creatinine Ratio 13.5 Glucose 105 Calcium 9.2 Troponin I High Sens 41.8 Urine Color Yellow Urine Clarity Clear Urine pH 7.0 Ur Specific [place] 1.005 Urine Protein Negative Urine Glucose (UA) Normal Urine Ketones Negative Urine Occult Blood Negative Urine Nitrite Negative Urine Bilirubin Negative Urine Urobilinogen Normal Ur Leukocyte Esterase Negative Urine RBC 0 SEEN Urine WBC 0 SEEN Ur Squamous Epith Cells 0 SEEN Urine Bacteria 0 SEEN Urine Mucus 0 SEEN Radiography Diagnostic Testing: Radiology Impression Chest CTA 02/08/21 05:06 IMPRESSION: No pulmonary embolism or other acute cardiopulmonary abnormalities identified. Individualized dose optimization techniques were used for this CT. at 0621 Reported and signed by: Brock Ho MD Electronically Signed: Brock Ho MD at 6:21 EDT Tel , Service support , EKG Initial EKG: Attestation: I personally reviewed and interpreted this EKG as follows: Interpretation: Sinus Rhythm, No Acute Injury Pattern and Non-Specific ST Changes (laterally) Comments: PACs Prior EKG tracings: available for review Prior: Unchanged Discharge Plan Triage Chief Complaint: Syncope ED Provider: Jacobo Chavez Dx/Rx/DC Orders Clinical Impression: Syncope and collapse, Hypokalemia, Pancreatic cancer Instructions: ED Hypokalemia, ED Fainting, Uncertain Cause Prescriptions: New potassium chloride 20 mEq tablet extended release 20 meq PO BID Qty: 20 RF: 0 No Action fentanyl 12 mcg/hr patch 72 hour 1 patch transdermal Q72H 30 Days Qty: 10 RF: 0 venlafaxine 37.5 MG capsule 37.5 mg PO DAILY RF: 0 levothyroxine [Levoxyl] 25 MCG tablet 75 mcg PO DAILY RF: 0 ergocalciferol (vitamin D2) 50,000 UNIT capsule 1 tablet PO QMONTH RF: 0 polyethylene glycol 3350 17 GM packet 17 gm PO DAILY PRN (Reason: Constipation) RF: 0 peg [id number] 1 DRP bottle 1 drp EACH EYE Q2H PRN (Reason: Dry Eyes) RF: 0 metoprolol tartrate 50 MG tablet 50 mg PO BID RF: 0 ondansetron 4 mg Tablet,Disintegrating 8 mg PO Q8H PRN PRN (Reason: NAUSEA) 30 Days Qty: 90 RF: 0 Primary Care Provider: Jf Lewis NP Referrals: Jf Lewis NP, [facility] [Primary Care Provider] - (and/or your oncologist) Disposition Disposition: Home, Self Care
[2021-02-08 04:48] LABS: Absolute Lymphocyte Count 1.51 X10^3/uL (0.83-4.51); Absolute Neutrophil Count 17.1 X10^3/uL (2.0-7.7); Basophil# 0.15 X10^3/uL; Basophil% 0.7 % (0-1); Eosinophil# 0.41 X10^3/uL; Eosinophils% 1.9 % (0-5); Hematocrit 31.5 % (37-47); Hemoglobin 10.1 g/dL (12.0-15.0); Lymphocyte # 1.51 X10^3/ul (0.83-4.51); Lymphocyte % 6.9 % (19-41); Mean Corp Hgb Conc 32.1 g/dL (32-36); Mean Corpuscular Hgb 26.3 pg (27.0-32.0); Mean Platelet Vol. 10.5 fl (6.2-12.0); Monocyte# 2.45 X10^3/uL; Monocyte% 11.2 % (0-10); NRBC Flagged by Analyzer 0 % (0-5); Neutrophil # 17.13 X10^3/uL (2.7-7.7); Neutrophil % 78.2 % (47-70); POSITIVE DIFFERENTIAL YES; Platelet Count 595 K/mm3 (150-450); RBC Distribution Width CV 14.4 % (11.6-14.6); RBC Distribution Width SD 42.6 fl (35.1-43.9); Red Blood Count 3.84 M/mm3 (4.2-5.4); White Blood Count 21.9 K/mm3 (4.4-11.0)
[2021-02-08 04:55] LABS: Differential Indicated SCAN CRITERIA MET
[2021-02-08 05:06] LABS: Anion Gap 10 (5-15); BUN 13 mg/dL (7-18); BUN/Creat Ratio 13.5 RATIO (10-20); Calcium,Total 9.2 mg/dL (8.5-10.1); Chloride 91 mmol/L (98-107); Creatinine, Serum 0.96 mg/dL (0.55-1.02); EST Glomerular Filtration Rate 59 mL/min (>60); Est Glom Filt Rate - Afr Amer 71 mL/min (>60); Estimated Creatinine Clearance 32.45 ml/min; Glucose 105 mg/dL (74-106); Potassium 2.9 mmol/L (3.5-5.1); Sodium Level 133 mmol/L (136-145); Troponin-I HS 41.8 pg/mL (3.0-53.7)
--- NOTE | 2021-02-08 05:06 | CT_ITS ---
EXAM: CT ANGIOGRAPHY CHEST WITHOUT AND WITH INTRAVENOUS CONTRAST : 1940 CLINICAL INDICATION: syncope, cancer, eval for PE TECHNIQUE: Helically acquired angiography images were obtained of the chest without and with intravenous contrast. This CT exam was performed using one or more of the following dose reduction techniques: automated exposure control, adjustment of the mA and/or kV according to patient size, and/or use of iterative reconstruction technique. This report was created using [employer] report generation technology. MIP reconstructed images were created and reviewed. CONTRAST: IV 75mL [id number] COMPARISON: None. FINDINGS: PULMONARY ARTERIES: Unremarkable. Normal in caliber. No evidence of pulmonary embolism. AORTA: Mild atherosclerotic changes of the thoracic aorta. Normal in caliber. No evidence of dissection. GREAT VESSELS OF AORTIC ARCH: Unremarkable. Normal in caliber. No evidence of dissection. LUNGS AND PLEURAL SPACES: Unremarkable. No mass. No consolidation or edema. No pleural effusion or thickening. No pneumothorax. HEART: Unremarkable. Heart size is normal. No pericardial effusion. No signs of right heart strain. MEDIASTINUM: Moderate hiatal hernia. No mediastinal or hilar adenopathy. Esophagus is unremarkable. THYROID: Unremarkable. No thyroid lesions. BONES/JOINTS: Degenerative changes of the spine. No suspicious lytic or blastic abnormality. SOFT TISSUES: Probable mastectomy changes. GALLBLADDER AND BILE DUCTS: Common bile duct stent with associated pneumobilia. CT/CTA Chest W/WO Contrast IMPRESSION: No pulmonary embolism or other acute cardiopulmonary abnormalities identified. Individualized dose optimization techniques were used for this CT. at 0621 Reported and signed by: Brock Ho MD Electronically Signed: Brock Ho MD at 6:21 EDT Tel , Service support ,
[2021-02-08 06:05] LABS: Bacteria 0 SEEN /hpf (None Seen); Mucous, Urine 0 SEEN /hpf (<or=2+); Red Blood Cells-Urine 0 SEEN /hpf (0-5); Squamous Epithelial Cells - UA 0 SEEN /hpf (5-10); White Blood Cells 0 SEEN /hpf (0-5)
[2021-02-08 06:10] VITALS: BP 173/57; PULSE 97; RESP 14; O2SAT 98
[2021-02-08] MEDS: Potassium Chloride 10mEq/100mL 10 MEQ/100 ML IV.SOLN. 100 MEQ IV BOLUS (06:15)
[2021-02-08 06:22] LABS: Color, Urine Yellow (Yellow); Glucose, Dipstick Normal (Normal); Ketone-Dipstick Negative (Negative); Leukocyte Esterase-Dipstick Negative /ul (Negative); Nitrite-Dipstick Negative (Negative); Occult Blood-Urine Negative /ul (Negative); Protein-Dipstick Negative (Negative); Specific Gravity, Urine 1.005 (1.002-1.030); Urine Bilirubin Dipstick Negative (Negative); Urine Clarity Clear (Clear); Urine Urobilinogen Normal (Normal)
[2021-02-08 07:14] VITALS: BP 136/64; PULSE 96; RESP 22; O2SAT 96
[2021-02-09 13:52] LABS: Pathologist Review Reviewed
== END 2021-02-08 07:38 | disposition home or self-care (01) ==
PROVIDERS: Emergency Provider Emergency Medicine; PCP Nurse Practitioner Family
DX: R55 Syncope and collapse (principal); E87.6 Hypokalemia; C25.9 Malignant neoplasm of pancreas, unspecified; I10 Essential (primary) hypertension; E78.5 Hyperlipidemia, unspecified; E03.9 Hypothyroidism, unspecified; Z79.899 Other long term (current) drug therapy
CPT/HCPCS: 71275; 80048; 81001; 84484; 85025; 93005; 96361; 96365; 99285; J7040; Q9967; A4216

== ENCOUNTER → 2021-02-23 12:30 | Outpatient (REF) | payer MEDICARE, OTHER, SELFPAY ==
[2021-02-08 04:03] VITALS: BMI 24.6
== END ==
LOC: OLS.HOSPIC 12:30
PROVIDERS: PCP Nurse Practitioner Family; Visit Provider Internal Medicine Cardiovascular Disease
DX: Z03.818 Encounter for observation for suspected exposure to other biological agents ruled out (principal)
CPT/HCPCS: 87635; U0005; U0003